=== PATIENT | female | born 1945 | race Caucasian/White ===

== ENCOUNTER 2016-07-26 14:02 | Emergency (ER) | payer OTHER ==
[2016-07-26 14:20] VITALS: BP 122/74; PULSE 89; TEMP 97.5; BMI 33.5
--- NOTE | 2016-07-26 16:09 | PDOC ---
History of Present Illness - General Chief Complaint: Pain Stated Complaint: RT LEG/ KNEE/ HIP PAIN Time Seen by Provider: 07/26/16 15:40 History Source: Patient Exam Limitations: No Limitations - History of Present Illness Initial Comments: 07/26/16 16:12 07/26/16 16:14 Chief complaint: Right lower back pain with radiation down right leg and pain in right knee worsening has had for months History of present illness: Patient is a 70 year old female with history of non- insulin-dependent diabetes hypertension, fibromyalgia, arthritis, hyperlipidemia , and chronic right neck pain with radiculopathy down right leg. Patient reports having worsening right knee pain with slight swelling of right knee over the last few months. Patient reports that right knee gives out when ambulating at times. Patient reports taking her Percocet without any relief of pain and ibuprofen at 6 AM today. Patient goes to pain management for her right lower back pain with radiculopathy. She reports that pain in her right leg today is a 9 out of 10 primarily in her right knee. Patient denies any numbness of her right leg, incontinency, or saddle anesthesia. Pt denies Injury to her right knee. Timing/Duration: getting worse Severity: severe (right knee ) Associated Symptoms: reports: denies symptoms Past History - Past Medical History Allergies/Adverse Reactions: Allergies Allergy/AdvReac Type Severity Reaction Status Date / Time cyclobenzaprine AdvReac Mild dizzy Verified 07/26/16 14:19 duloxetine HCl AdvReac Nausea Verified 07/26/16 14:19 [From Cymbalta] gabapentin AdvReac Nausea Verified 07/26/16 14:19 Home Medications: Ambulatory Orders Naproxen [Naprosyn -] 500 mg PO BID PRN #14 tablet MDD 2 07/26/16 Anemia: No Asthma: No Cancer: No Cardiac Disorders: No CVA: No COPD: No CHF: No Dementia: No Diabetes: Yes (NIDDM) GI Disorders: Yes (HX.COLON POLYP, Diverticulitis, and H. pylori) Disorders: No HTN: Yes Hypercholesterolemia: Yes Liver Disease: No Seizures: No Thyroid Disease: No - Surgical History Abdominal Surgery: No Appendectomy: No Cardiac Surgery: No Cholecystectomy: No Lung Surgery: No Neurologic Surgery: No Orthopedic Surgery: Yes (LEFT SHOULDER) - Psycho/Social/Smoking Cessation Hx Anxiety: No Suicidal Ideation: No Smoking Status: No Smoking History: Never smoked Number of Cigarettes Smoked Daily: 0 Hx Alcohol Use: No Drug/Substance Use Hx: No Substance Use Type: None Hx Substance Use Treatment: No Review of Systems - Review of Systems Able to Perform ROS?: Yes Constitutional: No: Symptoms Reported HEENTM: No: Symptoms Reported Respiratory: No: Symptoms reported Cardiac (ROS): No: Symptoms Reported ABD/GI: No: Symptoms Reported : No: Symptoms Reported Musculoskeletal: Yes: Back Pain (right sided radiates down rt. leg to foot ), Joint Pain (rt. knee ), Joint Swelling (rt. knee) Integumentary: No: Symptoms Reported Neurological: No: Symptoms reported *Physical Exam - Vital Signs Last Vital Signs Temp Pulse Resp BP Pulse Ox 97.5 F L 89 20 122/74 99 07/26/16 14:15 07/26/16 14:15 07/26/16 14:15 07/26/16 14:15 07/26/16 14:15 - Physical Exam General Appearance: Yes: Appropriately Dressed Respiratory/Chest: positive: Lungs Clear, Normal Breath Sounds. negative: Chest Tender, Respiratory Distress Cardiovascular: positive: Regular Rhythm, Regular Rate, S1, S2 Vascular Pulses: Dorsalis-Pedis (R): 4+ Musculoskeletal: positive: Normal Inspection, Decreased Range of Motion (from waist ). negative: CVA Tenderness, CVA Tenderness (R), CVA Tenderness (L), Vertebral Tenderness Extremity: positive: Normal Capillary Refill, Tender (rt. knee anterior/ posterior ), Swelling (suprapatella rt. knee ), Other (negative anterior/ posterior drawer rt. ). negative: Normal Inspection, Normal Range of Motion ( rt. knee ) Integumentary: positive: Normal Color Neurologic: positive: Alert, Normal Response, Respond to painful stimul (b/l legs ), Responsive, Other (negative SLR rt. ). negative: Motor Strength 5/5 ( motor/strength rt. leg decreased 3/3) Procedures - Consent Consent obtained: From Patient - Splinting Splint Location: Right: Knee Pre-Proc Neuro Vasc Exam: normal Pre-Made Type: knee immobilizer Medical Decision Making - Medical Decision Making 07/26/16 16:19 Patient is a 70 year old female with history of fls-stzfjeo-lcmcqysbi diabetes hypertension, fibromyalgia, arthritis, hyperlipidemia, and chronic right neck pain with radiculopathy down right leg. Patient reports having worsening right knee pain with slight swelling of right knee over the last few months. Patient reports that right knee gives out when ambulating at times. Patient reports taking her Percocet without any relief of pain and ibuprofen at 6 AM today. Patient goes to pain management for her right lower back pain with radiculopathy. She reports that pain in her right leg today is a 9 out of 10 primarily in her right knee. Patient denies any numbness of her right leg, incontinency, or saddle anesthesia. Pt denies Injury to her right knee. right sided lower back pain with radiculopathy right knee pain worsening over last few months with slight edema noted PLAN: toradol 60 mg IM now xray rt. knee now DJD noted ortho referral naprosyn 500 mg bid prn pain # 14 tabs 07/26/16 17:07 07/26/16 18:20 07/26/16 18:21 *DC/Admit/Observation/Transfer Diagnosis at time of Disposition: Lumbar radiculopathy, chronic Knee pain Qualifiers: Laterality: right Chronicity: chronic Qualified Code(s): M25.561 - Pain in right knee - Discharge Dispostion Disposition: HOME Condition at time of disposition: Stable - Prescriptions Prescriptions: Naproxen [Naprosyn -] 500 mg PO BID PRN #14 tablet MDD 2 PRN Reason: Pain - Referrals Referrals: Julita Bello NP [Primary Care Provider] - Milton Warner MD [Staff Physician] - - Patient Instructions Additional Instructions: Wear knee mmbolizier during the day and use crutches for ambulation FOLLOW UP WITH ORTHOPEDIST SOON POSSIBLE RETURN TO EMERGENCY ROOM IF SYMPTOMS WORSEN PATIENT VOICED UNDERSTANDING OF DISCHARGE INSTRUCTIONS AND ALL QUESTIONS WERE ANSWERED
[2016-07-26] MEDS ORDERED: KETOROLAC TROMETHAMINE 60 MG/2 ML VIAL IM ONE (16:10)
[2016-07-26] MEDS ORDERED: KETOROLAC TROMETHAMINE 60 MG/2 ML VIAL ONE (16:12)
== END 2016-07-26 17:15 | disposition home or self-care (01) ==
LOC: JERFT 14:02
PROC: 3E0233Z Introduction of Anti-inflammatory into Muscle, Percutaneous Approach (ICD-10-PCS; principal; 2016-07-26)
DX: M25.561 Pain in right knee (principal); E11.9 Type 2 diabetes mellitus without complications; I10 Essential (primary) hypertension; E78.00 Pure hypercholesterolemia, unspecified
CPT/HCPCS: 73562-TC-RT; 96372; 99282-25

== ENCOUNTER 2016-07-27 14:07 | Emergency (ER) | payer OTHER ==
[2016-07-27 14:16] VITALS: BP 158/84; PULSE 92; TEMP 98; BMI 33.5
--- NOTE | 2016-07-27 16:20 | PDOC ---
History of Present Illness - General History Source: Patient Exam Limitations: No Limitations - History of Present Illness Initial Comments: 07/27/16 16:49 The patient is a 70 year old female, with significant past medical history of hemorrhoids, diverticulosis, NIDDM, HTN, fibromyalgia, arthritis, HLD, chronic right neck pain, who presents today complaining of 2 days of rectal bleeding and abdominal pain. The patient states that her past 2 bowel movements were black stool with blood in the toilet bowl. She also reports epigastric pain and LUQ pain that is exacerbated when eating. She states that [address] Becerra told her that she had hemorrhoids. Her last colonoscopy was 3 years ago and normal. Denies fever, chills, nausea, vomiting. Denies chest pain, SOB. Allergies: cyclobenzaprine, duloxetine HCL, gabapentin PCP- Dr. Grijalva Catheterization Laboratory Technician: Dr. Becerra <Vijaya Gaitan - Last Filed: 07/27/16 16:49> <Jelani Sawyer - Last Filed: 07/27/16 18:36> - General Chief Complaint: Rectal Bleed Stated Complaint: BLOOD IN STOOL Time Seen by Provider: 07/27/16 16:18 Past History <Vijaya Gaitan - Last Filed: 07/27/16 16:49> - Past Medical History Anemia: No Asthma: No Cancer: No Cardiac Disorders: No CVA: No COPD: No CHF: No Dementia: No Diabetes: Yes (NIDDM) GI Disorders: Yes (HX.COLON POLYP, Diverticulitis, and H. pylori) Disorders: No HTN: Yes Hypercholesterolemia: Yes Liver Disease: No Seizures: No Thyroid Disease: No - Surgical History Abdominal Surgery: No Appendectomy: No Cardiac Surgery: No Cholecystectomy: No Lung Surgery: No Neurologic Surgery: No Orthopedic Surgery: Yes (LEFT SHOULDER) - Psycho/Social/Smoking Cessation Hx Anxiety: No Suicidal Ideation: No Smoking Status: No Smoking History: Never smoked Number of Cigarettes Smoked Daily: 0 Information on smoking cessation initiated: No Hx Alcohol Use: No Drug/Substance Use Hx: No Substance Use Type: None Hx Substance Use Treatment: No <Jelani Sawyer - Last Filed: 07/27/16 18:36> - Past Medical History Allergies/Adverse Reactions: Allergies Allergy/AdvReac Type Severity Reaction Status Date / Time cyclobenzaprine AdvReac Mild dizzy Verified 07/27/16 14:16 duloxetine HCl AdvReac Nausea Verified 07/27/16 14:16 [From Cymbalta] gabapentin AdvReac Nausea Verified 07/27/16 14:16 Abd/GI Specific PMHX - Complaint Specific PMHX Diverticulitis: Yes <Jelani Sawyer - Last Filed: 07/27/16 18:36> Review of Systems - Review of Systems Able to Perform ROS?: Yes Comments:: 07/27/16 16:50 CONSTITUTIONAL: No fever, no chills, no fatigue EYES: No visual changes ENT: No ear pain, no sore throat CARDIOVASCULAR: No chest pain, no palpitations RESPIRATORY: No cough, no SOB GI: +epigastric pain, black stool, blood in stool. No abdominal pain, no nausea , no vomiting, no constipation, no diarrhea GENITOURINARY: No dysuria, no frequency, no hematuria MUSKULOSKELETAL: No backpain, no joint pain, no myalgias SKIN: No rash NEURO: No headache <Vijaya Gaitan - Last Filed: 07/27/16 16:49> *Physical Exam - Vital Signs Last Vital Signs Temp Pulse Resp BP Pulse Ox 98 F 92 H 18 158/84 99 07/27/16 14:12 07/27/16 14:12 07/27/16 14:12 07/27/16 14:12 07/27/16 14:12 - Physical Exam Comments: 07/27/16 16:50 CONSTITUTIONAL: Well-appearing; well-nourished; in no apparent distress HEAD: Normocephalic; atraumatic EYES: PERRL; EOM intact. Conjunctiva are pink. ENMT: External appears normal; normal oropharynx NECK: Supple; non-tender; no cervical lymphadenopathy CARD: Normal S1, S2; no murmurs, rubs, or gallops RESP: Normal chest excursion with respiration; breath sounds clear and equal bilaterally; no wheezes, rhonchi, or rales ABD: +Mild epigastric and LUQ tenderness no guarding, no rebound. Soft, non- distended; no palpable organomegaly, no palpable hernias RECTAL: No thrombotic external hemorrhoid. No masses in rectal vault. Stool is brown. EXT: Normal ROM in all four extremities; non-tender to palpation; distal pulses intact SKIN: Warm, dry, no rash NEURO: No focal neurological deficiencies. <Vijaya Gaitan - Last Filed: 07/27/16 16:49> - Vital Signs Last Vital Signs Temp Pulse Resp BP Pulse Ox 98 F 92 H 18 158/84 99 07/27/16 14:12 07/27/16 14:12 07/27/16 14:12 07/27/16 14:12 07/27/16 14:12 <Jelani Sawyer - Last Filed: 07/27/16 18:36> ED Treatment Course - LABORATORY CBC & Chemistry Diagram: 07/27/16 17:00 07/27/16 17:00 <Jelani Sawyer - Last Filed: 07/27/16 18:36> Medical Decision Making - Medical Decision Making 07/27/16 18:11 Patient is a 70-year-old female with multiple comorbidities who presents with an episode of painless rectal bleeding and episode of dark stools on the day of arrival. In the ER, patient is awake and alert, hemodynamically stable. Serial abdominal exams reveal mild left upper quadrant and epigastric tenderness only without guarding or rebound. Rectal exam reveals nonthrombosed external hemorrhoids, brown stool in the rectal vault and no palpable masses. Patient's CBC is noted for hematocrit of 37 which appears unchanged. Stool for a cold blood in the ED is noted to be negative. I suspect hemorrhoidal bleeding at this time. Melena is unlikely. Will discuss with Dr. brenner of GI. Will reassess. 07/27/16 18:34 Patient is resting comfortably, tolerates by mouth, repeat abdominal exam shows no focal tenderness. I discussed the case with Dr. brenner of gi. He agrees with outpatient follow-up with by mouth Zantac twice a day. Patient has also been instructed not to take naproxen prescribed earlier for osteoarthritis. Patient expressed understanding. <Jelani Sawyer - Last Filed: 07/27/16 18:36> *DC/Admit/Observation/Transfer - Attestations Scribe Attestion: 07/27/16 16:51 Documentation prepared by AMADEO Marmolejo, acting as certified court/medical interpreter for Jelani Sawyer MD. <Vijaya Gaitan - Last Filed: 07/27/16 16:49> - Attestations Physician Attestion: 07/27/16 18:11 The documentation was prepared by the scribe under my direct supervision. I have reviewed the documentation which correctly represents the findings, medical decision-making and critical action taken by me. <Jelani Sawyer - Last Filed: 07/27/16 18:36> Diagnosis at time of Disposition: Rectal bleed - Discharge Dispostion Disposition: HOME Condition at time of disposition: Stable - Referrals Referrals: Alley Grijalva MD [Primary Care Provider] - Jose De Jesus Becerra MD [Staff Physician] - - Patient Instructions Printed Discharge Instructions: DI for Rectal Bleeding Additional Instructions: Take Zantac-150 mg by mouth twice daily. Do not take naproxen, ibuprofen or any other nonsteroidal anti-inflammatory medications. Follow-up with your GI doctor. Return immediately for recurrent bleeding.
[2016-07-27 17:24] LABS: BASOPHIL 0.4 % (0-2.0); EOSINOPHIL 2.3 % (0-4.5); MCH 28.4 pg (25.7-33.7); MCHC 32.9 g/dl (32.0-36.0); MEAN CELL VOLUME 86.4 fl (80-96); MEAN PLT VOLUME 8.2 fl (7.5-11.1); NEUTROPHILS 56.7 % (42.8-82.8); PLATELET COUNT 234 K/MM3 (134-434); RDW 13.8 % (11.6-15.6); WHITE BLOOD COUNT 7.6 K/mm3 (4.0-10.0)
[2016-07-27 17:58] LABS: ALBUMIN 3.8 g/dl (3.4-5.0); ANION GAP 8 (8-16); BILIRUBIN,TOTAL 0.5 mg/dL (0.2-1.0); CALCIUM 8.7 mg/dL (8.5-10.1); CO2 28 mmol/L (21-32); CREATININE 0.9 mg/dL (0.55-1.02); GLUCOSE,RANDOM 169 mg/dL (74-106); SGOT/AST 16 U/L (15-37); SGPT/ALT 23 U/L (12-78); TOT PROT 7.2 g/dl (6.4-8.2)
[2016-07-27 17:59] LABS: ALK PHOS 79 U/L (45-117)
[2016-07-27 18:04] LABS: INR 1.11 (0.82-1.09); PROTHROMBIN TIME (PATIENT) 12.2 SEC (9.98-11.88)
== END 2016-07-27 18:40 | disposition home or self-care (01) ==
LOC: JER 14:07
DX: K64.4 Residual hemorrhoidal skin tags (principal); I10 Essential (primary) hypertension; E11.9 Type 2 diabetes mellitus without complications; Z79.84 Long term (current) use of oral hypoglycemic drugs; E78.00 Pure hypercholesterolemia, unspecified; Z87.19 Personal history of other diseases of the digestive system
CPT/HCPCS: 36415; 80053; 82272; 85025; 85610; 86850; 86900; 86901; 99282-25

== ENCOUNTER 2016-08-23 14:17 | Emergency (ER) | payer OTHER ==
[2016-08-23] MEDS ORDERED: MECLIZINE HCL 25 MG TABLET (FP) PO ONE (14:58)
[2016-08-23] MEDS ORDERED: MECLIZINE HCL 25 MG TABLET (FP) ONE (15:08)
--- NOTE | 2016-08-23 15:11 | PDOC ---
History of Present Illness - General Chief Complaint: Lightheaded Stated Complaint: DIZZINESS Time Seen by Provider: 08/23/16 14:43 History Source: Patient Exam Limitations: No Limitations - History of Present Illness Initial Comments: 08/23/16 14:58 Associated Symptoms: reports: nausea/vomiting, other (dizziness/ spinnning when lying flat, resolves with sitting up ). denies: fever/chills, loss of consciousness, muscle spasms, numbness in legs/feet, paresthesia, ringing in ears Past History - Travel Traveled outside of the country in the last 30 days: No Close contact w/someone who was outside of country & ill: No - Past Medical History Allergies/Adverse Reactions: Allergies Allergy/AdvReac Type Severity Reaction Status Date / Time cyclobenzaprine AdvReac Mild dizzy Verified 08/23/16 14:47 duloxetine HCl AdvReac Nausea Verified 08/23/16 14:47 [From Cymbalta] gabapentin AdvReac Nausea Verified 08/23/16 14:47 Home Medications: Ambulatory Orders Atorvastatin Calcium [Lipitor] 20 mg PO HS 08/18/16 Glipizide [Glipizide ER] 2.5 mg PO DAILY 08/18/16 Oxycodone HCl/Acetaminophen [Percocet 10-325 mg Tablet] 1 each PO TID #90 tablet MDD 3 08/18/16 Zolpidem Tartrate [Ambien] 10 mg PO DAILY 08/18/16 Cholecalciferol (Vitamin D3) [Vitamin D3] 5,000 unit PO DAILY 08/23/16 Diclofenac Sodium 75 mg PO BID 08/23/16 Linagliptin [Tradjenta] 5 mg PO DAILY 08/23/16 Meclizine HCl [Antivert -] 25 mg PO TID #21 tablet 08/23/16 Naproxen [Naprosyn -] 500 mg PO BID 08/23/16 Telmisartan 80 mg PO DAILY 08/23/16 Anemia: No Asthma: No Cancer: No Cardiac Disorders: No CVA: No COPD: No CHF: No Dementia: No Diabetes: Yes (NIDDM) GI Disorders: Yes (HX.COLON POLYP, Diverticulitis, and H. pylori) Disorders: No HTN: Yes Hypercholesterolemia: Yes Liver Disease: No Seizures: No Thyroid Disease: No - Surgical History Abdominal Surgery: No Appendectomy: No Cardiac Surgery: No Cholecystectomy: No Lung Surgery: No Neurologic Surgery: No Orthopedic Surgery: Yes (LEFT SHOULDER) - Psycho/Social/Smoking Cessation Hx Anxiety: No Suicidal Ideation: No Smoking Status: No Smoking History: Never smoked Number of Cigarettes Smoked Daily: 0 Hx Alcohol Use: No Drug/Substance Use Hx: No Substance Use Type: None Hx Substance Use Treatment: No Neuro Specific PMHX - Complaint Specific PMHX Migraine: No Neuropathy: No TIA: No Comments:: 08/23/16 15:17 Recurrence of "spinning" when lying flat with associated nausea. No nystagmus, unable to check [place] due to patient's discomfort. Review of Systems - Review of Systems Able to Perform ROS?: Yes Is the patient limited Kiswahili proficient: Yes Constitutional: Yes: See HPI, Malaise HEENTM: Yes: See HPI, Nose Congestion. No: Symptoms Reported, Eye Pain, Blurred Vision, Recent change in vision, Double Vision Respiratory: Yes: See HPI. No: Symptoms reported, Cough Cardiac (ROS): No: Symptoms Reported : No: Symptoms Reported Musculoskeletal: Yes: See HPI. No: Symptoms Reported Neurological: Yes: Symptoms reported, Headache, Dizziness (spinning ) Endocrine: No: Symptoms Reported All Other Systems: Reviewed and Negative *Physical Exam - Vital Signs Last Vital Signs Temp Pulse Resp BP Pulse Ox 97.4 F L 81 20 149/77 98 08/23/16 14:47 08/23/16 14:47 08/23/16 14:47 08/23/16 14:47 08/23/16 14:47 - Physical Exam General Appearance: Yes: Appropriately Dressed, Apparent Distress HEENT: positive: NAI, Normal ENT Inspection, Normal Voice, TMs Normal, Pharynx Normal Neck: positive: Supple. 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 negative: Abnormal Cranial NS, Facial Droop, Numbness, Sensory Deficit, Finger to Nose NIH Stroke Scale - Initial Evaluation Level of consciousness: Alert Ask patient the month and their age: Answers both correctly Ask patient to open & close eyes; make fist and let go: Obeys both correctly Best gaze (horizontal eye movement): Normal Visual field testing: No visual field loss Facial paresis (Show teeth/raise eyebrows/close eyes tight): Normal symmetrical movement Motor Function: Left Arm: Normal Motor Function: Right Arm: Normal (extends arm 90 (or 45) degrees for 10 seconds without drift Motor Function: Left Leg: Normal (extends leg 30 degrees for 5 seconds without drift) Motor Function: Right Leg: Normal (extends leg 30 degrees for 5 seconds without drift) Limb Ataxia: No ataxia Sensory(Use pinprick test arms,legs,trunk,face/side to side): Normal Best language (Describe picture, name items, read sentences): No Aphasia Dysarthria (read several words): Normal articulation Extinction and Inattention: No abnormality - Total Score NIH Stroke Scale Score: 0 Critical Care Time/MDM Note - Medical Decision Making Note: 08/23/16 15:18 Vertigo, will obtain CAT scan, basic labs were and provide meclizine for test of cure 08/23/16 16:20 08/23/16 17:57 Laboratory work within normal limits, we'll discharge with meclizine, and follow -up with neurology. Patient has appointment on Discharge Disposition - Diagnosis Vertigo - Discharge Dispostion Disposition: HOME Condition at time of disposition: Stable Last Admission D/C Date: 11/22/12 Admit: No - Prescriptions Prescriptions: Meclizine HCl [Antivert -] 25 mg PO TID #21 tablet - Referrals Referrals: Alfonso Black MD [Primary Care Provider] - [facility] [Provider Group] - Patient Instructions Printed Discharge Instructions: DI for Vertigo Additional Instructions: Rest, drink lots of fluids: Teas, water, soups Continue [id number] medications for symptomatic relief Tylenol or Motrin for fever and pain Continue meclizine 25 mg tablet every 8 hours as needed for continued dizziness/ vertigo Consider evaluation by neurologist for continued vertigo Followup with private physician in one to 2 days as needed Return to emergency department for worsened symptoms, fevers, dehydration - Post Discharge Activity Work/School Note: Back to Work
[2016-08-23 15:19] VITALS: BP 149/77; PULSE 81; TEMP 97.4; BMI 32.3
[2016-08-23 16:09] LABS: BASOPHIL 0.7 % (0-2.0); EOSINOPHIL 1.2 % (0-4.5); MCH 28.3 pg (25.7-33.7); MCHC 32.8 g/dl (32.0-36.0); MEAN CELL VOLUME 86.4 fl (80-96); NEUTROPHILS 64.4 % (42.8-82.8); PLATELET COUNT 272 K/MM3 (134-434); RDW 14.1 % (11.6-15.6); WHITE BLOOD COUNT 8.5 K/mm3 (4.0-10.0)
[2016-08-23 17:40] LABS: ALBUMIN 3.7 g/dl (3.4-5.0); ANION GAP 8 (8-16); BILIRUBIN,TOTAL 0.3 mg/dL (0.2-1.0); CALCIUM 8.9 mg/dL (8.5-10.1); CO2 29 mmol/L (21-32); CREATININE 0.9 mg/dL (0.55-1.02); GLUCOSE,RANDOM 118 mg/dL (74-106); SGOT/AST 13 U/L (15-37); SGPT/ALT 18 U/L (12-78); TOT PROT 7.3 g/dl (6.4-8.2)
[2016-08-23 17:41] LABS: ALK PHOS 82 U/L (45-117)
--- NOTE | 2016-08-23 18:32 | PDOC ---
*Physical Exam - Vital Signs Last Vital Signs Temp Pulse Resp BP Pulse Ox 97.4 F L 81 20 149/77 98 08/23/16 14:47 08/23/16 14:47 08/23/16 14:47 08/23/16 14:47 08/23/16 14:47 ED Treatment Course - LABORATORY CBC & Chemistry Diagram: 08/23/16 16:00 08/23/16 17:00 - ADDITIONAL ORDERS Additional order review: Laboratory Results 08/23/16 08/23/16 17:00 16:00 Sodium 139 Cancelled Potassium 4.4 Cancelled Chloride 102 Cancelled Carbon Dioxide 29 Cancelled Anion Gap 8 Cancelled BUN 18 Cancelled Creatinine 0.9 Cancelled Creat Clearance w eGFR > 60 Cancelled Random Glucose 118 H D Cancelled Calcium 8.9 Cancelled Total Bilirubin 0.3 D Cancelled AST 13 L Cancelled ALT 18 D Cancelled Alkaline Phosphatase 82 Cancelled Total Protein 7.3 Cancelled Albumin 3.7 Cancelled 08/23/16 16:00 RBC 4.26 MCV 86.4 MCHC 32.8 RDW 14.1 MPV 8.0 Neutrophils % 64.4 Lymphocytes % 27.3 D Monocytes % 6.4 Eosinophils % 1.2 Basophils % 0.7 - Medications Given in the ED: ED Medications Discontinued Medications Generic Name Dose Route Start Last Admin Trade Name Kavitha PRN Reason Stop Dose Admin Meclizine HCl 25 mg 08/23/16 14:58 08/23/16 15:42 Antivert - PO 08/23/16 14:59 25 mg ONCE ONE Administration Medical Decision Making - Medical Decision Making 08/23/16 18:31 Pt seen by Midlevel Provider under my direct supervision Ancillary studies reviewed I agree with plan as outlined by Midlevel Provider *DC/Admit/Observation/Transfer Diagnosis at time of Disposition: Vertigo - Discharge Dispostion Disposition: HOME Condition at time of disposition: Stable - Prescriptions Prescriptions: Meclizine HCl [Antivert -] 25 mg PO TID #21 tablet - Referrals Referrals: [facility] [Provider Group] Alfonso Black MD [Primary Care Provider] - - Patient Instructions Printed Discharge Instructions: DI for Vertigo Additional Instructions: Rest, drink lots of fluids: Teas, water, soups Continue [id number] medications for symptomatic relief Tylenol or Motrin for fever and pain Continue meclizine 25 mg tablet every 8 hours as needed for continued dizziness/ vertigo Consider evaluation by neurologist for continued vertigo Followup with private physician in one to 2 days as needed Return to emergency department for worsened symptoms, fevers, dehydration - Post Discharge Activity Work/School Note: Back to Work
== END 2016-08-23 17:55 | disposition home or self-care (01) ==
LOC: JER 14:17
DX: R42 Dizziness and giddiness (principal); I10 Essential (primary) hypertension; E78.00 Pure hypercholesterolemia, unspecified; E11.9 Type 2 diabetes mellitus without complications
CPT/HCPCS: 36415; 70450-TC; 80053; 85025; 99284-25

== ENCOUNTER 2017-06-12 12:33 | Emergency (ER) | payer OTHER ==
[2017-06-12 12:44] VITALS: BP 135/80; PULSE 84; TEMP 98.8; BMI 33.5
[2017-06-12] MEDS ORDERED: traMADol HCL 50 MG TABLET PO ONE (13:43)
--- NOTE | 2017-06-12 13:50 | PDOC ---
History of Present Illness - General Chief Complaint: Injury Stated Complaint: INJURY Time Seen by Provider: 06/12/17 13:16 - History of Present Illness Initial Comments: 06/12/17 13:44 71yo woman presents s/p witnessed mechanical fall last night, now with L wrist pain. Around 7pm last night she fell while walking on the sidewalk. She denies any pre-syncopal symptoms, including lightheadedness, dizziness or seizure like activity before, during, and after the episode. She fell on outstretched hands. Denies hitting her head. No LOC. Her was present, and corroborates history. She iced her wrist, but still has significant 10/10 pain with movement of her L hand/wrist. Past History - Past Medical History Allergies/Adverse Reactions: Allergies Allergy/AdvReac Type Severity Reaction Status Date / Time cyclobenzaprine AdvReac Mild dizzy Verified 06/12/17 12:41 duloxetine HCl AdvReac Nausea Verified 06/12/17 12:41 [From Cymbalta] gabapentin AdvReac Nausea Verified 06/12/17 12:41 Home Medications: Ambulatory Orders Atorvastatin Calcium [Lipitor] 20 mg PO HS 08/18/16 Glipizide [Glipizide ER] 2.5 mg PO DAILY 08/18/16 Zolpidem Tartrate [Ambien] 10 mg PO DAILY 08/18/16 Cholecalciferol (Vitamin D3) [Vitamin D3] 5,000 unit PO DAILY 08/23/16 Linagliptin [Tradjenta] 5 mg PO DAILY 08/23/16 Naproxen [Naprosyn -] 500 mg PO BID 08/23/16 Telmisartan 80 mg PO DAILY 08/23/16 Diclofenac Sodium [Voltaren] 100 gm TP TID PRN 09/14/16 Oxycodone HCl/Acetaminophen [Percocet 10-325 mg Tablet] 1 each PO TID #90 tablet MDD 3 06/05/17 Oxycodone HCl/Acetaminophen [Percocet 5-325 mg Tablet] 1 tab PO BID #6 tablet MDD 2 06/12/17 Oxycodone HCl/Acetaminophen [Percocet 5-325 mg Tablet] 1 tab PO Q12H PRN #10 tablet MDD 2 06/12/17 Anemia: No Asthma: No Cancer: No Cardiac Disorders: No CVA: No COPD: No CHF: No DVT: No Dementia: No Diabetes: Yes (NIDDM) GI Disorders: Yes (HX.COLON POLYP, Diverticulitis, and H. pylori) Disorders: No HTN: Yes Hypercholesterolemia: Yes Liver Disease: No Seizures: No Thyroid Disease: No - Surgical History Abdominal Surgery: No Appendectomy: No Cardiac Surgery: No Cholecystectomy: No Lung Surgery: No Neurologic Surgery: No Orthopedic Surgery: Yes (LEFT SHOULDER) - Suicide/Smoking/Psychosocial Hx Smoking Status: No Smoking History: Never smoked Have you smoked in the past 12 months: No Number of Cigarettes Smoked Daily: 0 Information on smoking cessation initiated: No Hx Alcohol Use: No Drug/Substance Use Hx: No Substance Use Type: None Hx Substance Use Treatment: No Review of Systems - Review of Systems Musculoskeletal: Yes: Symptoms Reported Integumentary: No: Bruising Neurological: No: Headache, Numbness, Unsteady Gait, Dizziness All Other Systems: Reviewed and Negative *Physical Exam - Vital Signs Last Vital Signs Temp Pulse Resp BP Pulse Ox 98.8 F 84 18 135/80 100 06/12/17 12:42 06/12/17 12:42 06/12/17 12:42 06/12/17 12:42 06/12/17 12:42 - Physical Exam General Appearance: Yes: Nourished, Appropriately Dressed Neck: positive: Trachea midline, Supple, Tender lateral (L>R) Respiratory/Chest: positive: Lungs Clear, Normal Breath Sounds Cardiovascular: positive: Regular Rhythm, Regular Rate, S1, S2 Musculoskeletal: positive: Other (L radial soft tissue swelling, (+) L distal radius tenderness, limited L wrist flexion/extension 2/2 pain) Integumentary: negative: Swelling, Bruising Neurologic: positive: tear down worker II-XII NML intact, Fully Oriented, Alert Medical Decision Making - Medical Decision Making 06/12/17 13:55 71yo woman s/p mechanical fall with L scaphoid tenderness and radial wrist soft tissue swelling. Will order L arm/wrist with scaphoid views to r/o fracture. Will hold off on head imaging as patient denies hitting her head, CN exam and gait is intact. -Percocet for pain 06/12/17 13:59 Radiograph of L hand read as no radiographic e/o fracture, however can consider MRI if ongoing clinical concern. Due to point focal tenderness and possible correlated lucency on radiograph, a splint was placed. Pt was instructed to follow up with Orthopedics in the next 2-3 days, which she agreed with. *DC/Admit/Observation/Transfer Diagnosis at time of Disposition: Fracture of radial head, left, closed - Discharge Dispostion Disposition: HOME Condition at time of disposition: Stable Admit: No - Prescriptions Prescriptions: Oxycodone HCl/Acetaminophen [Percocet 5-325 mg Tablet] 1 tab PO Q12H PRN #10 tablet MDD 2 PRN Reason: Pain Oxycodone HCl/Acetaminophen [Percocet 5-325 mg Tablet] 1 tab PO BID #6 tablet MDD 2 - Referrals Referrals: Ngozi Hugo MD [Primary Care Provider] - Mahad Stock MD [Staff Physician] - - Patient Instructions Printed Discharge Instructions: DI for Forearm Fracture Additional Instructions: You have a suspected fracture in your left radial bone. Keep the splint on, place ice on your wrist every 20 minutes (that is 20 minutes with ice, 20 minutes off ice, repeat). Make an appointment with Dr. Stock, Orthopedist, in 2-3days. You can take 1 Percocet every 12 hours as needed for pain. Please also take a stool softner with Percocet to avoid constipation. You can also take Motrin for pain as needed. Please return to the Emergency Department if you have worsening, new or concerning symptoms. - Post Discharge Activity
[2017-06-12] MEDS ORDERED: traMADol HCL 50 MG TABLET ONE (13:56)
--- NOTE | 2017-06-12 14:00 | PDOC ---
Attending Attestation - HPI HPI: 06/12/17 14:02 The patient is a 71 year old female, with a significant past medical history of , who presents to the emergency department s/p mechanical fall last night with complaint of left wrist pain and swelling today. She states she was leaving her familys house, reports it was dark, and reportedly fell, however, denies tripping or reason for falling. She recalls falling with her upper extremities outstretched to stop her fall. She denies head trauma. She reports She denies chest pain, shortness of breath, headache and dizziness. She denies fever, chills, nausea, vomit, diarrhea and constipation. She denies dysuria, frequency, urgency and hematuria. - Physicial Exam PE: 06/12/17 14:02 Vitals: Triage vital signs reviewed General Appearance: No acute distress, well nourished, well developed Head: Atraumatic Neck: Supple; No nuchal rigidity Chest Wall: Nontender Cardiac: Regular rate and rhythm, no murmurs, no rubs, no gallops Lungs: Clear to auscultation bilateral, good air movement bilaterally Abdomen: Soft, nondistended, normal bowel sounds, nontender to palpation Rectal: Exam deferred Extremities: + Left Wrist ttp over distal radius, neurovascularly intact distally. Full range of motion to all extremities, no cyanosis, clubbing, or edema Skin: Warm and dry, no rashes or lesions, no rash, no petechiae Neuro: AOX3; Cranial Nerves 2-12 grossly intact, Strength intact to all extremities, Sensation intact to all extremities, gait normal Psych: Normal mood, normal affect - Medical Decision Making 06/12/17 14:03 Documentation prepared by Francie Christie, acting as medical education coordinator for Sagar Bradley MD <Francie Christie - Last Filed: 06/12/17 14:24> - Resident Resident Name: Michelle Avila - ED Attending Attestation I have performed the following: I have examined & evaluated the patient, The case was reviewed & discussed with the resident, I agree w/resident's findings & plan, Exceptions are as noted - Medical Decision Making 06/12/17 14:21 Mechanical fall landed on left outstretched wrist no other injury sustained We'll x-ray pain meds and reassess 06/12/17 16:35 X-ray suspicious for nondisplaced distal radius fracture. Patient placed in sugar tong splint. Provided with orthopedic follow-up and pain medication Findings, the need for follow-up and strict return instructions discussed with patient. <Sagar Bradley - Last Filed: 06/12/17 16:36>
[2017-06-12] MEDS ORDERED: oxyCODONE HCL 5 MG TABLET ONE (14:01)
== END 2017-06-12 15:48 | disposition home or self-care (01) ==
LOC: JERFT 12:33 → JER 12:33
PROC: 2W3DX1Z Immobilization of Left Lower Arm using Splint (ICD-10-PCS; principal; 2017-06-12)
DX: S52.125A Nondisplaced fracture of head of left radius, initial encounter for closed fracture (principal); W18.39XA Other fall on same level, initial encounter; Y93.89 Activity, other specified; Y92.9 Unspecified place or not applicable
CPT/HCPCS: 29105; 73110-TC-LT; 73130-TC-LT; 99282-25

== ENCOUNTER 2017-08-03 12:39 | Emergency (ER) | payer OTHER ==
[2017-08-03 12:55] VITALS: BP 115/68; PULSE 105; TEMP 98.8; BMI 34.7
[2017-08-03] MEDS ORDERED: IBUPROFEN 800 MG/8 ML IJ IVPB ONE (15:43)
[2017-08-03] MEDS ORDERED: ACETAMINOPHEN 1000 MG/100 ML VIAL (NON FORMULARY) IVPB ONE (15:44)
--- NOTE | 2017-08-03 16:05 | PDOC ---
History of Present Illness - General Chief Complaint: Weakness Stated Complaint: HEADACHES, NAUSEA Time Seen by Provider: 08/03/17 15:27 Exam Limitations: No Limitations - History of Present Illness Initial Comments: 08/03/17 16:05 The patient is a 71 year old female, with significant past medical history of hemorrhoids, diverticulosis, NIDDM, HTN, fibromyalgia, arthritis, HLD, chronic right neck pain Past History - Past Medical History Allergies/Adverse Reactions: Allergies Allergy/AdvReac Type Severity Reaction Status Date / Time cyclobenzaprine AdvReac Mild dizzy Verified 08/03/17 12:53 duloxetine HCl AdvReac Nausea Verified 08/03/17 12:53 [From Cymbalta] gabapentin AdvReac Nausea Verified 08/03/17 12:53 Home Medications: Ambulatory Orders Atorvastatin Calcium [Lipitor] 20 mg PO HS 08/18/16 Glipizide [Glipizide ER] 2.5 mg PO DAILY 08/18/16 Zolpidem Tartrate [Ambien] 10 mg PO DAILY 08/18/16 Cholecalciferol (Vitamin D3) [Vitamin D3] 5,000 unit PO DAILY 08/23/16 Linagliptin [Tradjenta] 5 mg PO DAILY 08/23/16 Naproxen [Naprosyn -] 500 mg PO BID 08/23/16 Telmisartan 80 mg PO DAILY 08/23/16 Diclofenac Sodium [Voltaren] 100 gm TP TID PRN 09/14/16 Docusate Sodium [Colace -] 100 mg PO TID #90 capsule 08/01/17 Oxycodone HCl/Acetaminophen [Percocet 10-325 mg Tablet] 1 each PO TID #90 tablet MDD 3 08/01/17 Oseltamivir Phosphate [Tamiflu -] 75 mg PO BID #10 capsule 08/03/17 Anemia: No Asthma: No Cancer: No Cardiac Disorders: No CVA: No COPD: No CHF: No DVT: No Dementia: No Diabetes: Yes (NIDDM) GI Disorders: Yes (HX.COLON POLYP, Diverticulitis, and H. pylori) Disorders: No HTN: Yes Hypercholesterolemia: Yes Liver Disease: No Seizures: No Thyroid Disease: No - Surgical History Abdominal Surgery: No Appendectomy: No Cardiac Surgery: No Cholecystectomy: No Lung Surgery: No Neurologic Surgery: No Orthopedic Surgery: Yes (LEFT SHOULDER) - Suicide/Smoking/Psychosocial Hx Smoking Status: No Smoking History: Never smoked Have you smoked in the past 12 months: No Number of Cigarettes Smoked Daily: 0 Hx Alcohol Use: No Drug/Substance Use Hx: No Substance Use Type: None Hx Substance Use Treatment: No *Physical Exam - Vital Signs Last Vital Signs Temp Pulse Resp BP Pulse Ox 98.8 F 105 H 16 115/68 99 08/03/17 12:53 08/03/17 12:53 08/03/17 12:53 08/03/17 12:53 08/03/17 12:53 ED Treatment Course - LABORATORY CBC & Chemistry Diagram: 08/03/17 16:00 08/03/17 16:00 *DC/Admit/Observation/Transfer Diagnosis at time of Disposition: Influenza A - Discharge Dispostion Disposition: HOME Admit: No - Prescriptions Prescriptions: Oseltamivir Phosphate [Tamiflu -] 75 mg PO BID #10 capsule - Referrals Referrals: Jordon Butler MD [Primary Care Provider] - - Patient Instructions Printed Discharge Instructions: How to Avoid a Cold or Flu, DI for Influenza - - Adult Additional Instructions: You have been tested positive for the flu! PPick up prescription for Tamiflu and use it as prescribed. Follow up with your primary care provider within the next 2-3 days. Come back to the ER for any new, worsening or concerning symptoms. - Post Discharge Activity
--- NOTE | 2017-08-03 16:10 | PDOC ---
Attending Attestation - Resident Resident Name: Memo Person - ED Attending Attestation I have performed the following: I have examined & evaluated the patient, The case was reviewed & discussed with the resident, I agree w/resident's findings & plan, Exceptions are as noted - Physicial Exam PE: 08/03/17 17:00 pt is awake and alert, well nourished, afebrile, in no distress nc, atr perrla, eomi, no photophobia mmm cta rrr sft, nt, nd no LEs edema, no petechiae - Medical Decision Making 08/03/17 16: 35 pt is a 71 y/o female with dm who presents with 4 days of flu-like sxs. in the ED , pt is axo3, non-toxic appearing, in no distress. VS are noted to be nl and stable. chest x-ray shows no evidence of i/e/ptx. cbc is wnl; will administer apap. will test for influenza. will reascess. 08/03/17 17:08 pt reascessed. pt is resting comfortably. pt is noted to be influenza a pos. will treat with tamiflu, will d/c.
[2017-08-03] MEDS ORDERED: ACETAMINOPHEN INJECTION 100 ML IVPB ONE (16:14)
[2017-08-03 16:25] LABS: BASO % 0.6 % (0-2.0); EOS % 0.2 % (0-4.5); HEMATOCRIT 36.2 % (32.4-45.2); HEMOGLOBIN 11.9 GM/dL (10.7-15.3); LYMPH % 22.5 % (8-40); MCH 28.5 pg (25.7-33.7); MCHC 32.9 g/dl (32.0-36.0); MEAN CELL VOLUME 86.5 fl (80-96); MEAN PLT VOLUME 8.3 fl (7.5-11.1); MONO % 13.9 % (3.8-10.2); NEUT % 62.8 % (42.8-82.8); PLATELET COUNT 176 K/MM3 (134-434); RBC 4.19 M/mm3 (3.60-5.2); RDW 13.7 % (11.6-15.6); WHITE BLOOD COUNT 4.7 K/mm3 (4.0-10.0)
[2017-08-03] MEDS ORDERED: OSELTAMIVIR PHOSPHATE 75 MG CAPSULE PO ONE (16:57)
[2017-08-03] MEDS ORDERED: OSELTAMIVIR PHOSPHATE 75 MG CAPSULE ONE (17:01)
[2017-08-03 17:10] LABS: ALBUMIN 3.5 g/dl (3.4-5.0); ANION GAP 10 (8-16); BILIRUBIN,TOTAL 0.3 mg/dL (0.2-1.0); BLOOD UREA NITROGEN 18 mg/dL (7-18); CALCIUM 8.7 mg/dL (8.5-10.1); CHLORIDE 98 mmol/L (98-107); CO2 27 mmol/L (21-32); CREATININE 0.9 mg/dL (0.55-1.02); GLUCOSE,RANDOM 94 mg/dL (74-106); SGOT/AST 23 U/L (15-37); SGPT/ALT 21 U/L (12-78); SODIUM 135 mmol/L (136-145); TOT PROT 7.3 g/dl (6.4-8.2)
[2017-08-03 17:11] LABS: ALK PHOS 67 U/L (45-117)
== END 2017-08-03 17:29 | disposition home or self-care (01) ==
LOC: JER 12:39
PROC: 3E033NZ Introduction of Analgesics, Hypnotics, Sedatives into Peripheral Vein, Percutaneous Approach (ICD-10-PCS; principal; 2017-08-03)
DX: J09.X2 Influenza due to identified novel influenza A virus with other respiratory manifestations (principal); I10 Essential (primary) hypertension; E11.9 Type 2 diabetes mellitus without complications; Z79.84 Long term (current) use of oral hypoglycemic drugs; M79.7 Fibromyalgia; M54.2 Cervicalgia; G89.29 Other chronic pain; Z87.19 Personal history of other diseases of the digestive system
CPT/HCPCS: 36415; 71046-TC; 80053; 85025; 87804; 96374; 99283-25

== ENCOUNTER 2017-10-28 14:19 | Emergency (ER) | payer OTHER ==
[2017-10-28 14:49] VITALS: BP 149/84; PULSE 89; TEMP 98.1; BMI 34.7
[2017-10-28] MEDS ORDERED: RABIES VACCINE (PCEC)/PF 2.5 UNIT/VIAL IM ONE (15:23)
[2017-10-28] MEDS ORDERED: RABIES IMMUNE GLOBULIN 300 UNITS/2 ML VIAL IM ONE (15:23)
[2017-10-28] MEDS ORDERED: DIPHTH,PERTUSS(ACELL),TET 0.5 ML DISP.SYRIN IM ONE (15:25)
[2017-10-28] MEDS ORDERED: RABIES IMMUNE GLOBULIN 300 UNITS/2 ML VIAL ONE (15:32)
--- NOTE | 2017-10-28 15:34 | PDOC ---
History of Present Illness - General Chief Complaint: Bite Stated Complaint: DOG BITE Time Seen by Provider: 10/28/17 14:58 History Source: Patient Exam Limitations: No Limitations - History of Present Illness Initial Comments: 10/28/17 15:30 CHIEF COMPLAINT: Dog bite to left wrist HISTORY OF PRESENT ILLNESS: Patient is a 72-year-old female with history of fibromyalgia, diabetes, high cholesterol, hypertension. Patient reports walking to the store, there was a large brown dog that walking to her and bit her on the left medial wrist. 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 Unknown vaccinations. Good range of motion to hand. Tetanus is not up-to-date. Severity: moderate Past History - Past Medical History Allergies/Adverse Reactions: Allergies Allergy/AdvReac Type Severity Reaction Status Date / Time cyclobenzaprine AdvReac Mild dizzy Verified 08/03/17 12:53 duloxetine HCl AdvReac Nausea Verified 08/03/17 12:53 [From Cymbalta] gabapentin AdvReac Nausea Verified 08/03/17 12:53 Home Medications: Ambulatory Orders Atorvastatin Calcium [Lipitor] 20 mg PO HS 08/18/16 Glipizide [Glipizide ER] 2.5 mg PO DAILY 08/18/16 Zolpidem Tartrate [Ambien] 10 mg PO DAILY 08/18/16 Cholecalciferol (Vitamin D3) [Vitamin D3] 5,000 unit PO DAILY 08/23/16 Linagliptin [Tradjenta] 5 mg PO DAILY 08/23/16 Naproxen [Naprosyn -] 500 mg PO BID 08/23/16 Telmisartan 80 mg PO DAILY 08/23/16 Docusate Sodium [Colace -] 100 mg PO TID #90 capsule 08/01/17 Diclofenac Sodium [Voltaren] 100 gm TP TID PRN #3 tube 09/25/17 Oxycodone HCl/Acetaminophen [Percocet 10-325 mg Tablet] 1 each PO TID #90 tablet MDD 3 10/24/17 Amox-Tr/K Cl [Augmentin - 875Mg Tablet] 1 tab PO BID #10 tablet 10/28/17 Anemia: No Asthma: No Cancer: No Cardiac Disorders: No CVA: No COPD: No CHF: No DVT: No Dementia: No Diabetes: Yes (NIDDM) GI Disorders: Yes (HX.COLON POLYP, Diverticulitis, and H. pylori) Disorders: No HTN: Yes Hypercholesterolemia: Yes Liver Disease: No Seizures: No Thyroid Disease: No - Surgical History Abdominal Surgery: No Appendectomy: No Cardiac Surgery: No Cholecystectomy: No Lung Surgery: No Neurologic Surgery: No Orthopedic Surgery: Yes (LEFT SHOULDER) - Immunization History Td Vaccination: No (more than 10 years) - Suicide/Smoking/Psychosocial Hx Smoking Status: No Smoking History: Never smoked Have you smoked in the past 12 months: No Number of Cigarettes Smoked Daily: 0 Information on smoking cessation initiated: No Hx Alcohol Use: No Drug/Substance Use Hx: No Substance Use Type: None Hx Substance Use Treatment: No Review of Systems - Review of Systems Constitutional: No: Symptoms Reported HEENTM: No: Symptoms Reported Respiratory: No: SOB with Exertion Cardiac (ROS): No: Symptoms Reported ABD/GI: No: Symptoms Reported : No: Symptoms Reported Musculoskeletal: No: Joint Pain, Joint Swelling Integumentary: Yes: Other (laceration to the dorsum of the left hand base of left thumb. 2 cm). No: Bruising, Erythema Hematologic/Lymphatic: No: Symptoms Reported All Other Systems: Reviewed and Negative *Physical Exam - Vital Signs Last Vital Signs Temp Pulse Resp BP Pulse Ox 98.1 F 89 20 149/84 98 10/28/17 14:41 10/28/17 14:41 10/28/17 14:41 10/28/17 14:41 10/28/17 14:41 - Physical Exam General Appearance: Yes: Appropriately Dressed. No: Apparent Distress Respiratory/Chest: positive: Lungs Clear, Normal Breath Sounds Cardiovascular: positive: Regular Rhythm Lymphatic: negative: Adenopathy Musculoskeletal: positive: Normal Inspection Extremity: positive: Normal Capillary Refill. negative: Cyanosis, Delayed Capillary Refill, Swelling, Erythema, Inflammation Integumentary: positive: Normal Color, Dry, Other (2 cm laceration to the dorsum of the left hand at the base of the left thumb.). negative: Erythema, Swelling, Ecchymosis, Bruising Neurologic: positive: Alert, Normal Mood/Affect Procedures - Laceration/Wound Repair Hand Wound Length: to 2.5 cm Wound's Depth, Shape: linear Betadine Prep: Yes Wound Repaired With: Dermabond Medical Decision Making - Medical Decision Making 10/28/17 15:53 A/P: Patient here after dog bite from a dog on the street, or drug dog is unknown. Left hand with 2 cm linear laceration actively bleeding after pressure applied still bleeding had to apply small amount of Dermabond to control bleeding. Patient meets criteria for rabies vaccination, vaccination and immunoglobulin given Around wound. Instructions for return given to patient. Augmentin ordered. Patient to follow-up as instructed. 10/28/17 16:23 *DC/Admit/Observation/Transfer Diagnosis at time of Disposition: Dog bite Qualifiers: Encounter type: initial encounter Qualified Code(s): W54.0XXA - Bitten by dog, initial encounter - Discharge Dispostion Disposition: HOME Condition at time of disposition: Good Admit: No - Prescriptions Prescriptions: Amox-Tr/K Cl [Augmentin - 875Mg Tablet] 1 tab PO BID #10 tablet - Referrals Referrals: Ngozi Hugo MD [Primary Care Provider] - - Patient Instructions Printed Discharge Instructions: DI for Animal Bites Additional Instructions: Please keep hand clean and dry, follow-up as instructed If any increased redness swelling or signs of infection return to ER Please try to keep hand as dry as possible for the next 3 days. Keep covered when showering. - Post Discharge Activity Forms/Work/School Notes: Rabies Vaccination F/U Carly.
== END 2017-10-28 16:06 | disposition home or self-care (01) ==
LOC: JERFT 14:19
PROC: 0HQGXZZ Repair Left Hand Skin, External Approach (ICD-10-PCS; principal; 2017-10-28)
PROC: 3E0234Z Introduction of Serum, Toxoid and Vaccine into Muscle, Percutaneous Approach (ICD-10-PCS; 2017-10-28)
PROC: 3E0234Z Introduction of Serum, Toxoid and Vaccine into Muscle, Percutaneous Approach (ICD-10-PCS; 2017-10-28)
PROC: 3E0234Z Introduction of Serum, Toxoid and Vaccine into Muscle, Percutaneous Approach (ICD-10-PCS; 2017-10-28)
PROC: 3E0234Z Introduction of Serum, Toxoid and Vaccine into Muscle, Percutaneous Approach (ICD-10-PCS; 2017-10-28)
DX: S61.452A Open bite of left hand, initial encounter (principal); W54.0XXA Bitten by dog, initial encounter; Y93.89 Activity, other specified; Y92.480 Sidewalk as the place of occurrence of the external cause; Y99.8 Other external cause status; I10 Essential (primary) hypertension; E78.00 Pure hypercholesterolemia, unspecified; E11.9 Type 2 diabetes mellitus without complications; Z87.19 Personal history of other diseases of the digestive system; Z79.84 Long term (current) use of oral hypoglycemic drugs; Z88.8 Allergy status to other drugs, medicaments and biological substances
CPT/HCPCS: 12001; 90375; 90471; 90675; 90715; 96372; 99281-25

== ENCOUNTER 2017-10-31 11:07 | Emergency (ER) | payer OTHER ==
[2017-10-31 11:59] VITALS: BP 141/76; PULSE 83; TEMP 98.2; BMI 30.3
[2017-10-31] MEDS ORDERED: RABIES VACCINE (PCEC)/PF 2.5 UNIT/VIAL IM ONE (12:53)
--- NOTE | 2017-10-31 13:01 | PDOC ---
Suture Removal/Wound Check HPI - History of Present Illness Chief Complaint: Revisit,Rabies Injection Stated Complaint: REVISIT/ RAB VACCINE Time Seen by Provider: 10/31/17 12:50 History Source: Yes: Patient, Old Records Exam Limitations: Yes: No Limitations Treated at: [facility] ED Date of Last ED visit: 10/28/17 - Previous ED Treatment Type of procedure performed on last visit: Yes: Other Tetanus Immunization: Yes: Given at last ED visit Past History - Past Medical History Allergies/Adverse Reactions: Allergies Allergy/AdvReac Type Severity Reaction Status Date / Time cyclobenzaprine AdvReac Mild dizzy Verified 10/31/17 11:55 duloxetine HCl AdvReac Nausea Verified 10/31/17 11:55 [From Cymbalta] gabapentin AdvReac Nausea Verified 10/31/17 11:55 Home Medications: Ambulatory Orders Atorvastatin Calcium [Lipitor] 20 mg PO HS 08/18/16 Glipizide [Glipizide ER] 2.5 mg PO DAILY 08/18/16 Zolpidem Tartrate [Ambien] 10 mg PO DAILY 08/18/16 Cholecalciferol (Vitamin D3) [Vitamin D3] 5,000 unit PO DAILY 08/23/16 Linagliptin [Tradjenta] 5 mg PO DAILY 08/23/16 Naproxen [Naprosyn -] 500 mg PO BID 08/23/16 Telmisartan 80 mg PO DAILY 08/23/16 Docusate Sodium [Colace -] 100 mg PO TID #90 capsule 08/01/17 Diclofenac Sodium [Voltaren] 100 gm TP TID PRN #3 tube 09/25/17 Oxycodone HCl/Acetaminophen [Percocet 10-325 mg Tablet] 1 each PO TID #90 tablet MDD 3 10/24/17 Amox-Tr/K Cl [Augmentin - 875Mg Tablet] 1 tab PO BID #10 tablet 10/28/17 Anemia: No Asthma: No Cancer: No Cardiac Disorders: No CVA: No COPD: No CHF: No DVT: No Dementia: No Diabetes: Yes (NIDDM) GI Disorders: Yes (HX.COLON POLYP, Diverticulitis, and H. pylori) Disorders: No HTN: Yes Hypercholesterolemia: Yes Liver Disease: No Seizures: No Thyroid Disease: No - Surgical History Abdominal Surgery: No Appendectomy: No Cardiac Surgery: No Cholecystectomy: No Lung Surgery: No Neurologic Surgery: No Orthopedic Surgery: Yes (LEFT SHOULDER) - Immunization History Td Vaccination: No (more than 10 years) - Suicide/Smoking/Psychosocial Hx Smoking Status: No Smoking History: Never smoked Have you smoked in the past 12 months: No Number of Cigarettes Smoked Daily: 0 Information on smoking cessation initiated: No Hx Alcohol Use: No Drug/Substance Use Hx: No Substance Use Type: None Hx Substance Use Treatment: No Suture Removal/Wound Check PE - Physical Exam Laceration/Wound Check Symptoms: reports: None Pain Intensity: 0 Current Severity Level: None Maximum Severity Level: None Pain Localization: None Location of Laceration/Wound: right: Hand *Review of Systems - Review of Systems Able to Perform ROS?: Yes Constitutional: No: Symptoms Reported HEENTM: No: Symptoms Reported Respiratory: No: Symptoms reported Cardiac (ROS): No: Symptoms Reported ABD/GI: No: Symptoms Reported : No: Symptoms Reported Musculoskeletal: No: Symptoms Reported Integumentary: No: Symptoms Reported Neurological: No: Symptoms reported Medical Decision Making - Medical Decision Making 10/31/17 12:57 A/P: 72-year-old female with wound check for dog bites to the right hand. The patient states on 10/28 she was bitten by a dog on her right hand and it started receiving treatment for post exposure rabies. Hand well-appearing without erythema or exudates. No drainage noted from wound. No streaking noted Rabies vaccine 2.5 units IM Instructions to revisit on day 7 for additional rabies vaccine. *DC/Admit/Observation/Transfer Diagnosis at time of Disposition: Need for rabies vaccination - Discharge Dispostion Disposition: HOME Condition at time of disposition: Stable Admit: No - Referrals Referrals: Ngozi Hugo MD [Primary Care Provider] - - Patient Instructions Printed Discharge Instructions: DI for Rabies Vaccine Additional Instructions: Return to ER for any pain, redness, swelling, inability to move hand or any other concerns. Return to ER on Sunday, November 04 for her next dose of rabies vaccine. - Post Discharge Activity
== END 2017-10-31 13:08 | disposition home or self-care (01) ==
LOC: JERFT 11:07
PROC: 3E0234Z Introduction of Serum, Toxoid and Vaccine into Muscle, Percutaneous Approach (ICD-10-PCS; principal; 2017-10-31)
DX: Z20.3 Contact with and (suspected) exposure to rabies (principal)
CPT/HCPCS: 90675; 99281-25

== ENCOUNTER 2017-11-04 12:28 | Emergency (ER) | payer OTHER ==
--- NOTE | 2017-11-04 12:41 | PDOC ---
Suture Removal/Wound Check HPI - History of Present Illness Chief Complaint: Revisit,Rabies Injection Stated Complaint: REVISIT, RABIES INJECTION Time Seen by Provider: 11/04/17 12:40 History Source: Yes: Patient, Old Records Exam Limitations: Yes: No Limitations Treated at: [facility] ED Date of Last ED visit: 10/28/17 - Previous ED Treatment Type of procedure performed on last visit: Yes: Other Tetanus Immunization: Yes: Given at last ED visit Past History - Past Medical History Allergies/Adverse Reactions: Allergies Allergy/AdvReac Type Severity Reaction Status Date / Time cyclobenzaprine AdvReac Mild dizzy Verified 11/04/17 12:39 duloxetine HCl AdvReac Nausea Verified 11/04/17 12:39 [From Cymbalta] gabapentin AdvReac Nausea Verified 11/04/17 12:39 Home Medications: Ambulatory Orders Atorvastatin Calcium [Lipitor] 20 mg PO HS 08/18/16 Glipizide [Glipizide ER] 2.5 mg PO DAILY 08/18/16 Zolpidem Tartrate [Ambien] 10 mg PO DAILY 08/18/16 Cholecalciferol (Vitamin D3) [Vitamin D3] 5,000 unit PO DAILY 08/23/16 Linagliptin [Tradjenta] 5 mg PO DAILY 08/23/16 Naproxen [Naprosyn -] 500 mg PO BID 08/23/16 Telmisartan 80 mg PO DAILY 08/23/16 Docusate Sodium [Colace -] 100 mg PO TID #90 capsule 08/01/17 Diclofenac Sodium [Voltaren] 100 gm TP TID PRN #3 tube 09/25/17 Oxycodone HCl/Acetaminophen [Percocet 10-325 mg Tablet] 1 each PO TID #90 tablet MDD 3 10/24/17 Amox-Tr/K Cl [Augmentin - 875Mg Tablet] 1 tab PO BID #10 tablet 10/28/17 Anemia: No Asthma: No Cancer: No Cardiac Disorders: No CVA: No COPD: No CHF: No DVT: No Dementia: No Diabetes: Yes (NIDDM) GI Disorders: Yes (HX.COLON POLYP, Diverticulitis, and H. pylori) Disorders: No HTN: Yes Hypercholesterolemia: Yes Liver Disease: No Seizures: No Thyroid Disease: No - Surgical History Abdominal Surgery: No Appendectomy: No Cardiac Surgery: No Cholecystectomy: No Lung Surgery: No Neurologic Surgery: No Orthopedic Surgery: Yes (LEFT SHOULDER) - Immunization History Td Vaccination: No (more than 10 years) - Suicide/Smoking/Psychosocial Hx Smoking Status: No Smoking History: Never smoked Have you smoked in the past 12 months: No Number of Cigarettes Smoked Daily: 0 Hx Alcohol Use: No Drug/Substance Use Hx: No Substance Use Type: None Hx Substance Use Treatment: No Suture Removal/Wound Check PE - Physical Exam Laceration/Wound Check Symptoms: reports: None Maximum Severity Level: None Pain Localization: None Location of Laceration/Wound: left: Hand Pain Radiation: None *Review of Systems - Review of Systems Able to Perform ROS?: Yes All Other Systems: Reviewed and Negative Medical Decision Making - Medical Decision Making 11/04/17 12:41 A/P: 72-year-old female with wound check for dog bites to the right hand. The patient states on 10/28 she was bitten by a dog on her right hand and it started receiving treatment for post exposure rabies. Hand well-appearing without erythema or exudates. No drainage noted from wound. No streaking noted Rabies vaccine 2.5 units IM Instructions to revisit on day 14 for additional rabies vaccine. *DC/Admit/Observation/Transfer Diagnosis at time of Disposition: Need for rabies vaccination - Discharge Dispostion Disposition: HOME Condition at time of disposition: Stable Admit: No - Referrals - Patient Instructions Additional Instructions: Return in one week for final dose of rabies vaccine. Return sooner for any fevers, chills, streaking from the wound up her arm, redness to the wound, drainage or any other concerns. - Post Discharge Activity
[2017-11-04 12:43] VITALS: BP 139/83; PULSE 83; TEMP 98.6; BMI 30.3
[2017-11-04] MEDS ORDERED: RABIES VACCINE (PCEC)/PF 2.5 UNIT/VIAL IM ONE (12:46)
== END 2017-11-04 13:01 | disposition home or self-care (01) ==
LOC: JERFT 12:28
PROC: 3E0234Z Introduction of Serum, Toxoid and Vaccine into Muscle, Percutaneous Approach (ICD-10-PCS; principal; 2017-11-04)
DX: Z20.3 Contact with and (suspected) exposure to rabies (principal); S61.451D Open bite of right hand, subsequent encounter; W54.0XXD Bitten by dog, subsequent encounter
CPT/HCPCS: 90471; 90675; 99281-25

== ENCOUNTER 2017-11-11 12:23 | Emergency (ER) | payer OTHER ==
[2017-11-11 12:29] VITALS: BP 131/70; PULSE 65; TEMP 98.6; BMI 30.3
[2017-11-11] MEDS ORDERED: RABIES VACCINE (PCEC)/PF 2.5 UNIT/VIAL IM ONE (12:42)
--- NOTE | 2017-11-11 12:47 | PDOC ---
History of Present Illness - General Chief Complaint: Revisit,Rabies Injection Stated Complaint: REVISIT/ RABIES INJECTION Time Seen by Provider: 11/11/17 12:31 History Source: Patient Exam Limitations: No Limitations (72y/o F here for final rabies vaccine, s/p dog bite) Past History - Travel Traveled outside of the country in the last 30 days: No Close contact w/someone who was outside of country & ill: No - Past Medical History Allergies/Adverse Reactions: Allergies Allergy/AdvReac Type Severity Reaction Status Date / Time cyclobenzaprine AdvReac Mild dizzy Verified 11/11/17 12:29 duloxetine HCl AdvReac Nausea Verified 11/11/17 12:29 [From Cymbalta] gabapentin AdvReac Nausea Verified 11/11/17 12:29 Home Medications: Ambulatory Orders Atorvastatin Calcium [Lipitor] 20 mg PO HS 08/18/16 Glipizide [Glipizide ER] 2.5 mg PO DAILY 08/18/16 Zolpidem Tartrate [Ambien] 10 mg PO DAILY 08/18/16 Cholecalciferol (Vitamin D3) [Vitamin D3] 5,000 unit PO DAILY 08/23/16 Linagliptin [Tradjenta] 5 mg PO DAILY 08/23/16 Naproxen [Naprosyn -] 500 mg PO BID 08/23/16 Telmisartan 80 mg PO DAILY 08/23/16 Docusate Sodium [Colace -] 100 mg PO TID #90 capsule 08/01/17 Diclofenac Sodium [Voltaren] 100 gm TP TID PRN #3 tube 09/25/17 Oxycodone HCl/Acetaminophen [Percocet 10-325 mg Tablet] 1 each PO TID #90 tablet MDD 3 10/24/17 Amox-Tr/K Cl [Augmentin - 875Mg Tablet] 1 tab PO BID #10 tablet 10/28/17 Anemia: No Asthma: No Cancer: No Cardiac Disorders: No CVA: No COPD: No CHF: No DVT: No Dementia: No Diabetes: Yes (NIDDM) GI Disorders: Yes (HX.COLON POLYP, Diverticulitis, and H. pylori) Disorders: No HTN: Yes Hypercholesterolemia: Yes Liver Disease: No Seizures: No Thyroid Disease: No - Surgical History Abdominal Surgery: No Appendectomy: No Cardiac Surgery: No Cholecystectomy: No Lung Surgery: No Neurologic Surgery: No Orthopedic Surgery: Yes (LEFT SHOULDER) - Immunization History Td Vaccination: No (more than 10 years) - Suicide/Smoking/Psychosocial Hx Smoking Status: No Smoking History: Never smoked Have you smoked in the past 12 months: No Number of Cigarettes Smoked Daily: 0 Hx Alcohol Use: No Drug/Substance Use Hx: No Substance Use Type: None Hx Substance Use Treatment: No Review of Systems - Review of Systems Is the patient limited [place]ian proficient: No Constitutional: No: Chills, Fever Respiratory: No: Cough, Orthopnea, Shortness of Breath Cardiac (ROS): No: Chest Pain Integumentary: No: Dryness, Erythema, Flushing, Pruritus, Rash, Sweating *Physical Exam - Vital Signs Last Vital Signs Temp Pulse Resp BP Pulse Ox 98.6 F 65 18 131/70 99 11/11/17 12:26 11/11/17 12:26 11/11/17 12:26 11/11/17 12:26 11/11/17 12:26 - Physical Exam General Appearance: Yes: Nourished Extremity: positive: Normal Capillary Refill, Normal Inspection, Normal Range of Motion (L hand: well healed wound w/o erythema or discharge, no drainage) *DC/Admit/Observation/Transfer Diagnosis at time of Disposition: Need for rabies vaccination - Discharge Dispostion Disposition: HOME Condition at time of disposition: Stable Admit: No - Referrals Referrals: Ngozi Hugo MD [Primary Care Provider] - - Patient Instructions Printed Discharge Instructions: DI for Rabies Vaccine - Post Discharge Activity
== END 2017-11-11 12:45 | disposition home or self-care (01) ==
LOC: JERFT 12:23
DX: Z20.3 Contact with and (suspected) exposure to rabies (principal)
CPT/HCPCS: 90675; 99281-25

== ENCOUNTER 2019-01-12 12:16 | Emergency (ER) | payer OTHER ==
[2019-01-12 12:25] VITALS: BMI 30.3
--- NOTE | 2019-01-12 12:57 | PDOC ---
History of Present Illness - General Chief Complaint: Back Pain Stated Complaint: LOWER BACK PAIN Time Seen by Provider: 01/12/19 12:56 - History of Present Illness Initial Comments: 01/12/19 14:58 Pt is a 73y/o F with hx of chronic back pain, htn , diabetes, anxiety, depression and sleep apnea, presents to the ED with 2 wks of worsening back pain. She rates the pain as a 10/10 stabbing pain radiating down from her lower right back down to her leg.Her chronic pain is managed by a pain clinic. She took some percocet yesterday and experienced some temporary relief but hasn't taken anything today. She has been undergoing physical therapy over the last 6 weeks and received an epidural injection approx. 2 wks ago.She reports right leg weakness and some increased difficulty walking and feelings of bladder pressure with dysuria..she denies any trauma. falls,bowel incontinence,fevers or chills. 01/12/19 15:18 Past History - Past Medical History Allergies/Adverse Reactions: Allergies Allergy/AdvReac Type Severity Reaction Status Date / Time baclofen AdvReac Intermediate dizzy Verified 01/12/19 12:25 cyclobenzaprine AdvReac Mild dizzy Verified 01/12/19 12:25 duloxetine HCl AdvReac Nausea Verified 01/12/19 12:25 [From Cymbalta] gabapentin AdvReac Nausea Verified 01/12/19 12:25 Home Medications: Ambulatory Orders Atorvastatin Calcium [Lipitor] 20 mg PO HS 08/18/16 Glipizide [Glipizide ER] 2.5 mg PO DAILY 08/18/16 Zolpidem Tartrate [Ambien] 10 mg PO DAILY 08/18/16 Linagliptin [Tradjenta] 5 mg PO DAILY 08/23/16 Naproxen [Naprosyn -] 500 mg PO BID 08/23/16 Ammonium Lactate Cream [Lac-Hydrin 12% *Cream*] 1 applic TP BID #1 tube Diclofenac Sodium [Voltaren] 100 gm TP TID PRN #3 tube 08/22/18 Ergocalciferol (Vitamin D2) [Vitamin D2] 50,000 unit PO Q7D #4 capsule 09/19/18 Polyethylene Glycol 3350 [Miralax (For Bowel Prep) -] 17 gm PO DAILY #1 bottle 09/19/18 Telmisartan/Hydrochlorothiazid [Telmisartan-Hctz 80-25 mg Tab] 1 each PO DAILY 09/19/18 Docusate Sodium [Colace -] 100 mg PO TID #90 capsule 11/14/18 Pramipexole Dihydrochloride [Mirapex -] 0.25 mg PO HS #30 tablet 11/14/18 Acetaminophen [Tylenol .Extra-Strength -] 500 mg PO Q6H PRN #100 tablet Blood Sugar Diagnostic [Glucose Test Strip] 1 each MC QID PRN #100 strip Oxycodone HCl/Acetaminophen [Percocet 10-325 mg Tablet] 1 each PO TID #90 tablet MDD 3 12/17/18 Cephalexin Monohydrate [Keflex -] 500 mg PO BID #10 capsule 01/12/19 Methylprednisolone [Medrol Dose William] 4 mg PO ASDIR #21 tablet 01/12/19 Anemia: No Asthma: No Cancer: No Cardiac Disorders: No CVA: No COPD: No CHF: No DVT: No Dementia: No Diabetes: Yes (NIDDM) GI Disorders: Yes (HX.COLON POLYP, Diverticulitis, and H. pylori) Disorders: No HTN: Yes Hypercholesterolemia: Yes Liver Disease: No Seizures: No Thyroid Disease: No - Surgical History Abdominal Surgery: No Appendectomy: No Cardiac Surgery: No Cholecystectomy: No Lung Surgery: No Neurologic Surgery: No Orthopedic Surgery: Yes (LEFT SHOULDER) - Immunization History Td Vaccination: No (more than 10 years) - Suicide/Smoking/Psychosocial Hx Smoking Status: No Smoking History: Never smoked Have you smoked in the past 12 months: No Number of Cigarettes Smoked Daily: 0 Hx Alcohol Use: No Drug/Substance Use Hx: No Substance Use Type: None Hx Substance Use Treatment: No Review of Systems - Review of Systems Constitutional: No: Chills, Diaphoresis, Fever, Loss of Appetite HEENTM: Yes: Other (denies any headache) Respiratory: No: Cough, Shortness of Breath Cardiac (ROS): No: Chest Pain ABD/GI: No: Diarrhea, Vomiting : Yes: Dysuria, Incontinence, Urgency. No: Hematuria, Pain Musculoskeletal: Yes: See HPI Neurological: Yes: See HPI All Other Systems: Reviewed and Negative *Physical Exam - Vital Signs Last Vital Signs Temp Pulse Resp BP Pulse Ox 98.3 F 79 18 140/80 98 01/12/19 12:21 01/12/19 12:21 01/12/19 12:21 01/12/19 12:21 01/12/19 12:21 - Physical Exam Respiratory/Chest: positive: Lungs Clear, Normal Breath Sounds. negative: Rales , Rhonchi, Wheezing Cardiovascular: positive: Regular Rhythm, Regular Rate, S1, S2 Gastrointestinal/Abdominal: positive: Normal Bowel Sounds, Soft, Other ( suprapubic tenderness ) Rectal Exam: positive: normal rectal tone Musculoskeletal: positive: Vertebral Tenderness (lumbar sacral point tenderness and paraspinal tenderness), Other (No erythema on inspection, swollen right knee. Tenderness in right hip and down the right leg.4/5 strength right leg. 5/ 5 strength on left leg. decreases ROM on the right. Walks with a limp & weight bearing on left.). negative: CVA Tenderness, CVA Tenderness (R) Extremity: positive: Normal Capillary Refill Neurologic: positive: Fully Oriented, Alert, Other Deep Tendon Reflexes: Knee (L): 3+, Knee (R): 1+ ED Treatment Course - LABORATORY CBC & Chemistry Diagram: 01/12/19 14:59 01/12/19 14:59 Medical Decision Making - Medical Decision Making 01/12/19 14:24 73y/o F with hx of chronic back pain syndrome, HTN, diabetes, depression/ anxiety presenting to the Ed with worsening back pain over the last 2 weeks DDx: Sciatica vs epidural abscess vs cauda equina vs vertebral fracture Labs/Imaging:Cbc, cmp, pt/inr, ptt, type and screen,UA and urine culture Bladder U/S MRI 01/12/19 14:52 Bladder U/S: 20 minute post-void residual volume of 56cc. 01/12/19 19:07 MRI Impression: 1. Degenerative changes at all levels in the lumbar spine as described above. The worst level is L4 -L5. Please refer to the report above for detailed evaluation at each level. 2. No evidence of epidural abscess or other fluid collection. Case d/w NSGY, Dr. Murcia who does not recommend any acute intervention. D/w patient and will call NSGY office tomorrow morning. Will give steroids and medrol dose pack. Will also treat symptomatic UTI despite relatively normal UA as pt will be on steroids and have mild immunocompromised state. Pt understands and will d/c with PCP and NSGY f/u. *DC/Admit/Observation/Transfer Diagnosis at time of Disposition: Low back pain Qualifiers: Chronicity: acute Back pain laterality: right Sciatica presence: with sciatica Sciatica laterality: sciatica laterality unspecified Qualified Code(s): M54.40 - Lumbago with sciatica, unspecified side - Discharge Dispostion Disposition: HOME Condition at time of disposition: Stable Decision to Admit order: No - Prescriptions Prescriptions: Cephalexin Monohydrate [Keflex -] 500 mg PO BID #10 capsule Methylprednisolone [Medrol Dose William] 4 mg PO ASDIR #21 tablet - Referrals Referrals: Ngozi Hugo MD [Primary Care Provider] - Chadd Quan MD, FAANS [Staff Physician] - - Patient Instructions Printed Discharge Instructions: DI for Low Back Pain Additional Instructions: Please follow up with Dr. Murcia tomorrow morning for your low back pain. Please return if you develop incontinence, fever, chills, nausea, vomiting, numbness, tingling, or worsening weakness. Please also follow up with your primary care doctor in 1-2 days. Take all of your medications as prescribed. - Post Discharge Activity
[2019-01-12] MEDS ORDERED: SODIUM CHLORIDE 0.9% 500 ML INFUS.BAG IV ONE (14:37)
--- NOTE | 2019-01-12 14:38 | PDOC ---
Documentation entered by Han Duran SCRIBE, acting as scribe for Anette Rees DO. Anette Rees DO: This documentation has been prepared by the Roger kathleen Nirvannie, SCRIBE, under my direction and personally reviewed by me in its entirety. I confirm that the documentation accurately reflects all work, treatment, procedures, and medical decision making performed by me. Attending Attestation - Resident Resident Name: JesusAriel - ED Attending Attestation I have performed the following: I have examined & evaluated the patient, The case was reviewed & discussed with the resident, I agree w/resident's findings & plan - HPI HPI: 01/12/19 14:41 The patient is a 73 year old female, with a significant past medical history of hemorrhoids, diverticulosis, NIDDM, HTN, fibromyalgia, arthritis, HLD, chronic right neck pain, and chronic back pain, who presents to the emergency department with, new onset weakness and acute on chronic back pain with paresthesias. She describes her pain as onsetting in the back and radiating down the right leg to the knee. Patient endorses getting an epidural injection 2 months ago and a steroid injection last week by her pain management doctor. She denies any urinary or bowel incontinence. She denies recent chest pain or shortness of breath. Allergies: cyclobenzaprine, duloxetine HCL, gabapentin Primary Care Physician: Dr. Hugo - Physicial Exam PE: 01/12/19 14:41 Constitutional: Awake, alert, oriented. No acute distress. Head: Normocephalic. Atraumatic Eyes: PERRL. EOMI. Conjunctivae are not pale. ENT: Mucous membranes are moist and intact. Posterior pharynx without exudates or erythema. Uvula midline. Neck: Supple. Full ROM. No lymphadenopathy. Cardiovascular: Regular rate. Regular rhythm. S1, S2 regular. Distal pulses are 2+ and symmetric. Pulmonary/Chest: No evidence of respiratory distress. Clear to auscultation bilaterally No wheezing, rales or rhonchi. Abdominal: +Mild right suprapubic tenderness. Soft and non-distended. No rebound, guarding or rigidity. No organomegaly. No palpable masses. Good bowel sounds. Back: Right lower back pain. SI joint tenderness. No CVA tenderness. Musculoskeletal: No edema. No cyanosis. No clubbing. Full range of motion in all extremities. No calf tenderness. Radial/pedal pulses are intact and 2+ bilaterally Skin: Skin is warm and dry. No petechiae. No purpura. Neurological: Alert and oriented to person, place, and time. Cranial nerves II -XII are grossly intact. Normal speech. 4/5 strength R>L. Decreased sensation on the right upper and lower extremities. Psychiatric: Good eye contact. Normal interaction, affect and behavior. - Medical Decision Making 01/12/19 14:35 I, Dr. Anette Rees, DO, attest that this document has been prepared under my direction and personally reviewed by me in its entirety. I further attest, that it accurately reflects all work, treatment, procedures and medical decision -making performed by me. 01/12/19 14:35 a/p: 73yo female with hx of lbp who follows with pain management with worsening lbp and new weakness down R leg and paresthesias, decreased sensation -pt also c/o hesitancy with urination -no dysuria no hematuria -no incontinence -pt with steroid injection to back last week by pain management and epidural in the past -concern for nerve impingment from herniated disc in back causing pain -normal rectal tone -also concern for uti -will send labs, ua - pre and post void residual -mri back 01/12/19 14:53 20 min post void shows 56cc 01/12/19 18:59 MRI results discussed with Dr. Quan who receommends outrob sellers in the office tomorrow recommends medrol dose pack will start steroids in the ED mild uti on labs will treat with keflex given urgency and hesitancy 01/12/19 19:01 pt stable for dc to home feels better after steroids, discussed follow up with Ayleen
[2019-01-12 15:22] LABS: INR 1.09 (0.83-1.09); PROTHROMBIN TIME (PATIENT) 12.9 SEC (9.7-13.0)
[2019-01-12 15:24] LABS: ACTIVATED PTT 33.5 SECONDS (25.2-36.5)
[2019-01-12 15:31] LABS: ALBUMIN 3.6 g/dl (3.4-5.0); BILIRUBIN,TOTAL 0.6 mg/dL (0.2-1); BLOOD UREA NITROGEN 15.3 mg/dL (7-18); CALCIUM 8.9 mg/dL (8.5-10.1); CREATININE 0.9 mg/dL (0.55-1.3); POTASSIUM 4.2 mmol/L (3.5-5.1); TOT PROT 6.9 g/dl (6.4-8.2)
[2019-01-12 15:53] LABS: BASO % 0.4 % (0-2.0); EOS % 1.9 % (0-4.5); HEMATOCRIT 36.6 % (32.4-45.2); HEMOGLOBIN 11.9 GM/dL (10.7-15.3); MCH 28.9 pg (25.7-33.7); MCHC 32.6 g/dl (32.0-36.0); MEAN CELL VOLUME 88.6 fl (80-96); MEAN PLT VOLUME 7.9 fl (7.5-11.1); MONO % 7.9 % (3.8-10.2); NEUT % 59.8 % (42.8-82.8); RBC 4.13 M/mm3 (3.60-5.2); RDW 13.9 % (11.6-15.6); WHITE BLOOD COUNT 7.2 K/mm3 (4.0-10.0)
[2019-01-12 15:56] LABS: PLATELET COUNT 226 K/MM3 (134-434)
[2019-01-12 17:10] LABS: EPI CELLS 0.7 /HPF (0-5/HPF); HYALINE CASTS 0 /lpf (0-8); URINE APPEARANCE CLEAR; URINE BACTERIA 4.2 /hpf (NEGATIVE); URINE BILIRUBIN NEGATIVE (NEGATIVE); URINE COLOR YELLOW; URINE GLUCOSE (UA) NEGATIVE (NEGATIVE); URINE KETONE NEGATIVE (NEGATIVE); URINE LEUK ESTERASE TRACE (NEGATIVE); URINE NITRITE NEGATIVE (NEGATIVE); URINE PROTEIN NEGATIVE (NEGATIVE); URINE RBC 5 /hpf (0-4); URINE UROBILINOGEN 0.2 mg/dL (0.2-1.0); URINE WBC 3 /hpf (0-5)
[2019-01-12 17:22] VITALS: BP 137/78; PULSE 76; TEMP 97.9
[2019-01-12] MEDS ORDERED: predniSONE 20 MG TABLET (UD) PO ONE (17:56)
[2019-01-12] MEDS ORDERED: CEPHALEXIN MONOHYDRATE 500 MG CAPSULE (UD) PO ONE (18:59)
[2019-01-12] MEDS ORDERED: predniSONE 20 MG TABLET (UD) ONE (18:59)
[2019-01-12] MEDS ORDERED: CEPHALEXIN MONOHYDRATE 500 MG CAPSULE (UD) ONE (19:21)
== END 2019-01-12 19:29 | disposition home or self-care (01) ==
LOC: JER 12:16
PROC: 3E0337Z Introduction of Electrolytic and Water Balance Substance into Peripheral Vein, Percutaneous Approach (ICD-10-PCS; principal; 2019-01-12)
DX: M54.40 Lumbago with sciatica, unspecified side (principal); I10 Essential (primary) hypertension; E11.9 Type 2 diabetes mellitus without complications; F41.8 Other specified anxiety disorders; G89.29 Other chronic pain
CPT/HCPCS: 36415; 72158-TC; 80053; 81003; 85025; 85610; 85730; 86850; 86900; 86901; 87086; 96360; 99282-25; A9579

== ENCOUNTER 2019-02-17 08:14 | Day surgery (SDC) | payer OTHER ==
[2019-02-14 19:28] VITALS: BMI 33.9
[2019-02-17] MEDS ORDERED: PROPOFOL 20 ML ONE ×3 (10:01)
[2019-02-17] MEDS ORDERED: LIDOCAINE HCL/PF 2% SDV 5ML VIAL ONE (10:01)
[2019-02-17 13:26] VITALS: TEMP 97.5
[2019-02-17 13:32] VITALS: BP 113/57; PULSE 65
== END 2019-02-17 11:00 | disposition home or self-care (01) ==
LOC: FASU-ENDO 08:14
PROVIDERS: ATTEND Internal Medicine Gastroenterology
PROC: 0DJD8ZZ Inspection of Lower Intestinal Tract, Via Natural or Artificial Opening Endoscopic (ICD-10-PCS; principal; 2019-02-17 10:02)
DX: Z86.010 Personal history of colon polyps (principal)
CPT/HCPCS: 82962

== ENCOUNTER 2019-04-14 18:40 | Emergency (ER) | payer OTHER ==
[2019-04-14 19:02] VITALS: BMI 32.3
--- NOTE | 2019-04-14 19:35 | PDOC ---
Documentation entered by Kerry Rodriguez SCRIBE, acting as scribe for Arlene Hernandez MD. Arlene Hernandez MD: This documentation has been prepared by the Jennifer kathleen Brenda, SCRIBE, under my direction and personally reviewed by me in its entirety. I confirm that the documentation accurately reflects all work, treatment, procedures, and medical decision making performed by me. Attending Attestation - Resident Resident Name: Kb Faria - ED Attending Attestation I have performed the following: I have examined & evaluated the patient, The case was reviewed & discussed with the resident, I agree w/resident's findings & plan, Exceptions are as noted - HPI HPI: 04/14/19 19:31 73-year-old female brought in by ambulance after walking backwards and falling on her buttocks , She was unpacking her suitcase and stepped backwards and the suitcase moved causing her to loose her footing and she fell onto her buttocks she now has complaint of hip pain 04/14/19 19:47 - Physicial Exam PE: 04/14/19 19:34 petite wnwd 73 yo female p/w hip pain s/p fall head ncat neck no cervical midline tenderness lungs cta b/l cvs [id number] abd no rebound, no guarding Extremities no deformities but pain to rt buttocks and rt femur ,able to lift legs off the gurney skin warm and dry neuro [id number] 04/14/19 22:43 - Medical Decision Making 04/14/19 19:32 pt requires imaging studies to r/o dislocation or fracture she denies hitting her head ,she denies LOC she arrived with a c collar on that was positioned over her lower face. She did not have any midline cervical vertebral tenderness 04/14/19 22:47 plain radiographs did not reveals any acute femur fracture or pelvic fracture but pt still coulfnt ambulate 04/15/19 00:[address] was NEGATIVE for any acute occult pelvic fractures and pt received pain meds and could ambulate d/c home imp leg trauma/contusion/muscle strain
[2019-04-14] MEDS ORDERED: ACETAMINOPHEN 500 MG TABLET (FP) PO ONE (19:47)
--- NOTE | 2019-04-14 19:51 | PDOC ---
History of Present Illness - General Chief Complaint: Injury Stated Complaint: FALL Time Seen by Provider: 04/14/19 19:29 History Source: Patient, Family Exam Limitations: No Limitations Past History - Past Medical History Allergies/Adverse Reactions: Allergies Allergy/AdvReac Type Severity Reaction Status Date / Time baclofen AdvReac Intermediate dizzy Verified 04/14/19 19:02 duloxetine HCl AdvReac Intermediate Nausea Verified 04/14/19 19:02 [From Cymbalta] gabapentin AdvReac Intermediate Nausea Verified 04/14/19 19:02 cyclobenzaprine AdvReac Mild dizzy Verified 04/14/19 19:02 Home Medications: Ambulatory Orders Atorvastatin Calcium [Lipitor] 20 mg PO HS 08/18/16 Glipizide [Glipizide ER] 2.5 mg PO DAILY 08/18/16 Zolpidem Tartrate [Ambien] 10 mg PO DAILY 08/18/16 Linagliptin [Tradjenta] 5 mg PO DAILY 08/23/16 Telmisartan/Hydrochlorothiazid [Telmisartan-Hctz 80-25 mg Tab] 1 each PO DAILY 09/19/18 Diclofenac Sodium [Voltaren] 100 gm TP TID PRN #3 tube 01/15/19 Ammonium Lactate Cream [Lac-Hydrin 12% *Cream*] 1 applic TP BID #1 tube Docusate Sodium [Colace -] 100 mg PO TID #90 capsule 02/14/19 Ergocalciferol (Vitamin D2) [Vitamin D2] 50,000 unit PO Q7D #4 capsule 02/14/19 Polyethylene Glycol 3350 [Miralax (For Bowel Prep) -] 17 gm PO DAILY #1 bottle 02/14/19 Sitagliptin Phosphate [Januvia] 50 mg PO DAILY 02/14/19 Naproxen [Naprosyn -] 500 mg PO BID 7 Days #14 tablet 04/15/19 Acetaminophen [Tylenol .Extra-Strength -] 500 mg PO Q6H PRN #100 tablet Oxycodone HCl/Acetaminophen [Percocet 10-325 mg Tablet] 1 each PO TID #90 tablet MDD 3 04/16/19 Anemia: No Asthma: No Cancer: No Cardiac Disorders: No CVA: No COPD: No CHF: No DVT: No Dementia: No Diabetes: Yes (NIDDM) GI Disorders: Yes (HX.COLON POLYP, Diverticulitis, and H. pylori) Disorders: No HTN: Yes Hypercholesterolemia: Yes Liver Disease: No Seizures: No Thyroid Disease: No - Surgical History Abdominal Surgery: No Appendectomy: No Cardiac Surgery: No Cholecystectomy: No Lung Surgery: No Neurologic Surgery: No Orthopedic Surgery: Yes (LEFT SHOULDER) - Immunization History Td Vaccination: No (more than 10 years) - Psycho Social/Smoking Cessation Hx Smoking Status: No Smoking History: Never smoked Have you smoked in the past 12 months: No Number of Cigarettes Smoked Daily: 0 Information on smoking cessation initiated: No Hx Alcohol Use: No Drug/Substance Use Hx: No Substance Use Type: None Hx Substance Use Treatment: No *Physical Exam - Vital Signs Last Vital Signs Temp Pulse Resp BP Pulse Ox 97.7 F 81 18 160/96 99 04/14/19 18:49 04/14/19 18:49 04/14/19 18:49 04/14/19 18:49 04/14/19 18:49 ED Treatment Course - RADIOLOGY Radiology Studies Ordered: Category Date Time Status HIP & PELVIS-LEFT [RAD] Stat Radiology 04/14/19 19:47 Ordered HIP & PELVIS-RIGHT [RAD] Stat Radiology 04/14/19 19:47 Ordered Medical Decision Making - Medical Decision Making 04/14/19 19:49 HPI: 73F PMH HTN, DM, Anxiety presenting after fall. Pt was unpacking her suitcase, took a step back, and slipped on the suitcase subsequently landing on her right side. Denies head strike and LOC. Pt felt a "tear" of her right hamstring. Currently complaining of right hip pain radiating down the leg and of concurrent left hip and hamstring pain. Worse on Right. PMH see chart; patient has existing right knee meniscus tear due for knee replacement ROS: CONSTITUTIONAL: Denies F / C HEENT: Denies headache, lightheadedness RESP: Denies SOB CARD: Denies chest pain, palpitations GI: Denies N / V , abdominal pain MSK: Denies myalgias. Denies costal margin pain. Denies upper extr. pain. NEURO: Denies numbness, tingling PE: GEN: Mild distress 2/2 pain; cooperative, well appearing. AAOx3 HEENT: NC/AT. No facial asymmetry. Normal voice. Supple neck w/ FROM. No Midline tenderness of neck CV: S1/S2, RRR, no m/r/g LUNG: CTAB, no wheezes, crackles, rales, rhonchi. GI: soft, ndnt, +BS, no guarding, no rebound. No masses. EXTREMITIES: No obvious deformities of the UE or LE. LE equal in length. SKIN: warm, dry, normal turgor PSYCH: normal mood and affect NEURO: Sensation grossly intact throughout. Moving all extremities - LE motion limited by pain. BACK: no step offs, no vertebral midline tenderness. + TTP of sacrum and b/l posterior pelvis MDM: 73F c/o right and left hip pain radiating down leg s/p mechanical fall w/o headstrike or LOC. - Pain control - XR Hips - BGM 04/14/19 20:20 Sister at bedside requesting MRI. Discussed indications and clinically reasoning required for MRI. 04/14/19 22:56 No obvious fracture on films on review with ED attending. Patient states tylenol helped but pain is severe Patient able to stand - torodol IM - oxycodone - CT pelvis due to concern for occult fracture signed out to night team Discharge - Discharge Information Problems reviewed: Yes Clinical Impression/Diagnosis: Fall Qualifiers: Encounter type: initial encounter Qualified Code(s): W19.XXXA - Unspecified fall, initial encounter Condition: Improved Disposition: HOME - Additional Discharge Information Prescriptions: Naproxen [Naprosyn -] 500 mg PO BID 7 Days #14 tablet - Follow up/Referral Referrals: Mikal Starkey DO [Staff Physician] - - Patient Discharge Instructions Patient Printed Discharge Instructions: How to Prevent Falls Additional Instructions: You have been seen in the Emergency Department for your hip injury and pain. Your X-rays and CT scan show no signs of fracture or dislocation. Your pain is most likely a strain or sprain of a ligament or muscle. We have given you a referral to an Orthopedic Surgeon for further evaluation. Give his office a call to set up an appointment for this week. If you experience pain, you can take Tylenol or Ibuprofen as directed on the medication bottle, but do not exceed 3g of Ibuprofen or 4g of Tylenol a day. We have also sent Naprosyn to your pharmacy if you would prefer to take that - take as directed on the bottle. Follow the RICE protocol to help with the healing process: R - Rest. Rest and protect the injured or sore area. Stop, change, or take a break from any activity that may be causing your pain or soreness. I - Ice. Cold will reduce pain and swelling. Apply an ice or cold pack right away to prevent or minimize swelling. Apply the ice or cold pack for 10 to 20 minutes, 3 or more times a day. After 48 to 72 hours, if swelling is gone, apply heat to the area that hurts. Do not apply ice or heat directly to the skin. Place a towel over the cold or heat pack before applying it to the skin. C - Compression. Compression, or wrapping the injured or sore area with an elastic bandage (such as an Sincere wrap), will help decrease swelling. Don't wrap it too tightly, because this can cause more swelling below the affected area. Loosen the bandage if it gets too tight. Signs that the bandage is too tight include numbness, tingling, increased pain, coolness, or swelling in the area below the bandage. E - Elevation. Elevate the injured or sore area on pillows while applying ice and anytime you are sitting or lying down. Try to keep the area at or above the level of your heart to help minimize swelling. Return to the ED immediately if you experience worsening pain not controlled by over the counter medications, numbness or tingling, weakness, fever, worsening swelling, or any other new or worsening symptom. - Post Discharge Activity
[2019-04-14] MEDS ORDERED: ACETAMINOPHEN 325 MG TABLET (FP) ONE (20:40)
[2019-04-14] MEDS ORDERED: KETOROLAC TROMETHAMINE 60 MG/2 ML VIAL IM ONE (22:26)
[2019-04-14] MEDS ORDERED: oxyCODONE HCL 5 MG TABLET PO ONE (22:27)
[2019-04-14] MEDS ORDERED: KETOROLAC TROMETHAMINE 60 MG/2 ML VIAL ONE (22:31)
[2019-04-14] MEDS ORDERED: oxyCODONE HCL 5 MG TABLET ONE (22:31)
[2019-04-14 23:53] VITALS: BP 130/66; PULSE 73; TEMP 97.9
--- NOTE | 2019-04-15 00:03 | PDOC ---
*Physical Exam - Vital Signs Last Vital Signs Temp Pulse Resp BP Pulse Ox 97.9 F 73 16 130/66 96 04/14/19 23:50 04/14/19 23:50 04/14/19 23:50 04/14/19 23:50 04/14/19 23:50 ED Treatment Course - ADDITIONAL ORDERS Additional order review: Laboratory Results 04/14/19 20:55 POC Glucometer 111 04/14/19 20:55 POC Glucometer 111 - Medications Given in the ED: ED Medications Discontinued Medications Generic Name Dose Route Start Last Admin Trade Name Kavitha PRN Reason Stop Dose Admin Acetaminophen 975 mg 04/14/19 19:47 04/14/19 20:45 Tylenol - PO 04/14/19 19:48 975 mg ONCE ONE Administration Ketorolac Tromethamine 60 mg 04/14/19 22:26 04/14/19 22:40 Toradol Injection - IM 04/14/19 22:27 60 mg ONCE ONE Administration Oxycodone HCl 5 mg 04/14/19 22:27 04/14/19 22:40 Roxicodone - PO 04/14/19 22:28 5 mg ONCE ONE Administration Medical Decision Making - Medical Decision Making 04/15/19 00:00 Sign out received. Pt seen and assessed at bedside. Pending CT pelvis to r/o occult fx. If negative, dc w/ortho f/u. 73yo F presenting w/b/l hip pain R>L s/p mechanical fall. BGM 111. No obvious fracture on films on review with ED attending. Pt now able to stand. Pain improved with tylenol, torodol, and oxycodone. 04/15/19 00:44 CT read: no acute fx or dislocation Will dc home with naprosyn and ortho f/u. Return precautions given. Pt understands all dc instructions and all questions were answered. Discharge - Discharge Information Problems reviewed: Yes Clinical Impression/Diagnosis: Fall Qualifiers: Encounter type: initial encounter Qualified Code(s): W19.XXXA - Unspecified fall, initial encounter Condition: Improved Disposition: HOME - Admission No - Additional Discharge Information Prescriptions: Naproxen [Naprosyn -] 500 mg PO BID 7 Days #14 tablet - Follow up/Referral Referrals: Mikal Starkey DO [Staff Physician] - - Patient Discharge Instructions Patient Printed Discharge Instructions: How to Prevent Falls Additional Instructions: You have been seen in the Emergency Department for your hip injury and pain. Your X-rays and CT scan show no signs of fracture or dislocation. Your pain is most likely a strain or sprain of a ligament or muscle. We have given you a referral to an Orthopedic Surgeon for further evaluation. Give his office a call to set up an appointment for this week. If you experience pain, you can take Tylenol or Ibuprofen as directed on the medication bottle, but do not exceed 3g of Ibuprofen or 4g of Tylenol a day. We have also sent Naprosyn to your pharmacy if you would prefer to take that - take as directed on the bottle. Follow the RICE protocol to help with the healing process: R - Rest. Rest and protect the injured or sore area. Stop, change, or take a break from any activity that may be causing your pain or soreness. I - Ice. Cold will reduce pain and swelling. Apply an ice or cold pack right away to prevent or minimize swelling. Apply the ice or cold pack for 10 to 20 minutes, 3 or more times a day. After 48 to 72 hours, if swelling is gone, apply heat to the area that hurts. Do not apply ice or heat directly to the skin. Place a towel over the cold or heat pack before applying it to the skin. C - Compression. Compression, or wrapping the injured or sore area with an elastic bandage (such as an Sincere wrap), will help decrease swelling. Don't wrap it too tightly, because this can cause more swelling below the affected area. Loosen the bandage if it gets too tight. Signs that the bandage is too tight include numbness, tingling, increased pain, coolness, or swelling in the area below the bandage. E - Elevation. Elevate the injured or sore area on pillows while applying ice and anytime you are sitting or lying down. Try to keep the area at or above the level of your heart to help minimize swelling. Return to the ED immediately if you experience worsening pain not controlled by over the counter medications, numbness or tingling, weakness, fever, worsening swelling, or any other new or worsening symptom. - Post Discharge Activity
== END 2019-04-15 01:06 | disposition home or self-care (01) ==
LOC: JER 18:40
PROC: 3E0233Z Introduction of Anti-inflammatory into Muscle, Percutaneous Approach (ICD-10-PCS; principal; 2019-04-14)
DX: S76.012A Strain of muscle, fascia and tendon of left hip, initial encounter (principal); S76.011A Strain of muscle, fascia and tendon of right hip, initial encounter; W18.09XA Striking against other object with subsequent fall, initial encounter; Y93.89 Activity, other specified; Y92.038 Other place in apartment as the place of occurrence of the external cause; Y99.8 Other external cause status; I10 Essential (primary) hypertension; E78.00 Pure hypercholesterolemia, unspecified; E11.9 Type 2 diabetes mellitus without complications; Z79.84 Long term (current) use of oral hypoglycemic drugs; Z88.8 Allergy status to other drugs, medicaments and biological substances
CPT/HCPCS: 72192-TC; 73523-TC-FY; 82962; 96372; 99281-25

== ENCOUNTER 2020-02-06 04:52 | Day surgery (SDC) | payer OTHER ==
[2020-02-05 08:50] VITALS: BMI 33.9
--- NOTE | 2020-02-06 11:38 | HP ---
Admitting History and Physical - Admission Chief Complaint: Left Low back/ Buttock and leg pain. History Source: Patient - Past Medical History Gastrointestinal: Yes: Diverticulosis Endocrine: Yes: Diabetes Mellitus - Smoking History Smoking history: Never smoked Have you smoked in the past 12 months: No Aproximately how many cigarettes per day: 0 - Alcohol/Substance Use Hx Alcohol Use: No Home Medications - Allergies Allergies/Adverse Reactions: Allergies Allergy/AdvReac Type Severity Reaction Status Date / Time baclofen AdvReac Intermediate dizzy Verified 02/06/20 09:32 duloxetine HCl AdvReac Intermediate Nausea Verified 02/06/20 09:32 [From Cymbalta] gabapentin AdvReac Intermediate Nausea Verified 02/06/20 09:32 cyclobenzaprine AdvReac Mild dizzy Verified 02/06/20 09:32 - Home Medications Home Medications: Ambulatory Orders Atorvastatin Ca [Lipitor] 10 mg PO HS 12/17/19 Docusate Sodium [Colace] 100 mg PO PRN 12/17/19 Glipizide [Glucotrol Xl] 2.5 mg PO DAILY 12/17/19 Omeprazole 20 mg PO PRN 12/17/19 Sitagliptin Phosphate [Januvia] 50 mg PO DAILY 12/17/19 Telmisartan/Hydrochlorothiazid [Telmisartan-Hctz 80-25 mg Tab] 1 each PO DAILY 12/17/19 Oxycodone HCl/Acetaminophen [Percocet 10-325 mg Tablet] 1 each PO PRN PRN MDD 3 02/05/20 Polyethylene Glycol 3350 [Miralax (For Bowel Prep) -] 17 gm PO PRN 02/05/20 Review of Systems - Review of Systems Constitutional: reports: No Symptoms Eyes: reports: No Symptoms HENT: reports: No Symptoms Neck: reports: No Symptoms Cardiovascular: reports: No Symptoms Respiratory: reports: No Symptoms Gastrointestinal: reports: No Symptoms Genitourinary: reports: No Symptoms Breasts: reports: No Symptoms Reported Musculoskeletal: reports: Other (Left SIJ Pain) Neurological: reports: No Symptoms Endocrine: reports: No Symptoms Hematology/Lymphatic: reports: No Symptoms Psychiatric: reports: No Symptoms Physical Examination Vital Signs: Vital Signs Temperature 98.4 F 02/06/20 09:45 Pulse Rate 78 02/06/20 09:45 Respiratory Rate 18 02/06/20 09:45 Blood Pressure 146/88 02/06/20 09:45 O2 Sat by Pulse Oximetry (%) 96 02/06/20 09:46 Constitutional: Yes: Well Nourished, No Distress, Calm Eyes: Yes: WNL, Conjunctiva Clear, EOM Intact HENT: Yes: WNL, Atraumatic, Normocephalic Neck: Yes: Trachea Midline Cardiovascular: Yes: Regular Rate and Rhythm Respiratory: Yes: Regular Gastrointestinal: Yes: WNL Musculoskeletal: Yes: Back Pain Extremities: Yes: WNL Neurological: Yes: WNL, Alert, Oriented ...Motor Strength: WNL Psychiatric: Yes: WNL, Alert, Oriented Imaging - Results X-ray: Image Reviewed MRI: Image Reviewed Assessment/Plan The patients pain is secondary to Left Sacroilliac Joint dysfunction. 1. I will perform Left SIJ injection.
[2020-02-06] MEDS ORDERED: TRIAMCINOLONE ACET 40MG/1ML VIAL ONE (11:57)
[2020-02-06] MEDS ORDERED: LIDOCAINE HCL/PF 1% SDV 5ML VIAL ONE (11:57)
[2020-02-06] MEDS ORDERED: LIDOCAINE 1% P/F 10 MG/ML VIAL INF ONE ×2 (12:23)
[2020-02-06] MEDS ORDERED: BUPIVACAINE HCL/PF 0.5% (5 MG/ML) 30 ML VIAL IJ ONE (12:24)
[2020-02-06] MEDS ORDERED: DEXAMETHASONE SOD PHOSPHATE 10 MG/1 ML VIAL IVPUSH ONE (12:32)
[2020-02-06] MEDS ORDERED: TRIAMCINOLONE ACETONIDE 40 MG/ML 10 ML VIAL IJ ONE (12:34)
[2020-02-06 13:37] VITALS: BP 111/66; PULSE 85; TEMP 97.5
--- NOTE | 2020-02-12 09:32 | PROC ---
Procedure Note Procedure: Preprocedure Diagnosis: Left Sacroiliac Joint Dysfunction Post Procedure Diagnosis: same Anesthesia: Local Procedure Performed: Left Sacroiliac Joint injection under fluoroscpic guidance After the risks and benefits were explained, informed consent was obtained. The patient was then taken to the procedure room and positioned prone on the procedure table. Time out was performed. The region overlying the right sacroiliac joint was identified using fluoroscopy. The skin was prepped and draped in the usual sterile fashion. The skin and soft tissues were anesthetized using 2% lidocaine. Using fluoroscopic guidance, a 22 gauge 3.5 inch spinal needle was then introduced to the inferior aspect of the posterior Left sacroiliac joint. Omnipaque 180 confirmed appropriate needle placement. 1 cc .5% bupivacaine and 1 cc Kenalog was then injected. The patient tolerated the procedure well and there were no complications. The patient was taken to the post procedure recovery area in good condition. Vital signs remained stable before, during, and after the procedure. The patient was given oral and written follow-up instructions. The patient was given a follow up appointment with me in the near future. Solomon Zavala DO
== END 2020-02-06 13:45 | disposition home or self-care (01) ==
LOC: JASU-SURG 04:52
PROVIDERS: ATTEND Pain Medicine Pain Medicine
PROC: 3E0T3BZ Introduction of Anesthetic Agent into Peripheral Nerves and Plexi, Percutaneous Approach (ICD-10-PCS; 2020-02-06)
PROC: 3E0T33Z Introduction of Anti-inflammatory into Peripheral Nerves and Plexi, Percutaneous Approach (ICD-10-PCS; principal; 2020-02-06 11:00)
DX: M53.3 Sacrococcygeal disorders, not elsewhere classified (principal); E11.9 Type 2 diabetes mellitus without complications
CPT/HCPCS: 76000-TC-FY; J1100

== ENCOUNTER 2020-09-17 04:10 | Day surgery (SDC) | payer OTHER ==
[2020-09-16 11:11] VITALS: BMI 32.7
[2020-09-17 08:14] VITALS: TEMP 97.7
[2020-09-17] MEDS ORDERED: BUPIVACAINE HCL/PF 0.5% (5MG/ML) 10 ML VIAL IJ ONE (10:48)
[2020-09-17] MEDS ORDERED: IOHEXOL 180 MG/1 ML ML IJ ONE (10:49)
[2020-09-17 12:41] VITALS: BP 148/73; PULSE 73
== END 2020-09-17 11:55 | disposition home or self-care (01) ==
LOC: JASU-SURG 04:10
PROVIDERS: ATTEND Pain Medicine Pain Medicine
PROC: BR14YZZ Fluoroscopy of Cervical Facet Joint(s) using Other Contrast (ICD-10-PCS; 2020-09-17)
PROC: 3E0T3BZ Introduction of Anesthetic Agent into Peripheral Nerves and Plexi, Percutaneous Approach (ICD-10-PCS; principal; 2020-09-17 10:00)
DX: M47.812 Spondylosis without myelopathy or radiculopathy, cervical region (principal)

== ENCOUNTER 2021-01-28 04:16 | Day surgery (SDC) | payer OTHER ==
[2021-01-27 08:39] VITALS: BMI 30.2
[2021-01-28] MEDS ORDERED: TRIAMCINOLONE ACET 40MG/1ML VIAL ONE (07:14)
[2021-01-28] MEDS ORDERED: LIDOCAINE HCL/PF 1% SDV 5ML VIAL ONE (07:14)
[2021-01-28] MEDS ORDERED: BUPIVACAINE HCL/PF 0.5% (5MG/ML) 10 ML VIAL ONE (07:15)
[2021-01-28 11:43] VITALS: BP 126/68; PULSE 70; TEMP 97.4
== END 2021-01-28 11:05 | disposition home or self-care (01) ==
LOC: JASU-SURG 04:16
PROVIDERS: ATTEND Pain Medicine Pain Medicine
PROC: 3E0U3BZ Introduction of Anesthetic Agent into Joints, Percutaneous Approach (ICD-10-PCS; 2021-01-28)
PROC: 3E0U33Z Introduction of Anti-inflammatory into Joints, Percutaneous Approach (ICD-10-PCS; principal; 2021-01-28 10:26)
DX: M53.3 Sacrococcygeal disorders, not elsewhere classified (principal)
CPT/HCPCS: 76000-TC-FY

== ENCOUNTER 2021-09-27 05:24 | Day surgery (SDC) | payer OTHER ==
[2021-09-23 11:04] VITALS: BMI 32.7
[2021-09-27] MEDS ORDERED: LIDOCAINE HCL/PF 1% SDV 5ML VIAL ONE (07:08)
[2021-09-27] MEDS ORDERED: BUPIVACAINE HCL/PF 0.75% 10 ML VIAL ONE (07:09)
[2021-09-27] MEDS ORDERED: TRIAMCINOLONE ACET 40MG/1ML VIAL ONE (07:09)
[2021-09-27] MEDS ORDERED: BUPIVACAINE HCL/PF 0.5% (5MG/ML) 10 ML VIAL ONE (07:09)
[2021-09-27] MEDS ORDERED: DEXAMETHASONE SOD PHOSPHATE 10 MG/1 ML VIAL ONE (07:09)
[2021-09-27] MEDS ORDERED: LIDOCAINE HCL 1% PRESERVATIVE FREE - 30ML VIAL IJ ONE (08:59)
[2021-09-27] MEDS ORDERED: IOHEXOL 180 MG/1 ML ML IJ ONE (09:02)
[2021-09-27] MEDS ORDERED: BUPIVACAINE HCL/PF 0.5% (5 MG/ML) 30 ML VIAL IJ ONE (09:02)
[2021-09-27] MEDS ORDERED: TRIAMCINOLONE ACET 40MG/1ML VIAL IM ONE (09:03)
[2021-09-27 09:57] VITALS: BP 154/71; PULSE 71; TEMP 97.7
== END 2021-09-27 09:35 | disposition home or self-care (01) ==
LOC: JASU-SURG 05:24
PROVIDERS: ATTEND Pain Medicine Pain Medicine
PROC: 3E0U3BZ Introduction of Anesthetic Agent into Joints, Percutaneous Approach (ICD-10-PCS; 2021-09-27)
PROC: 3E0U33Z Introduction of Anti-inflammatory into Joints, Percutaneous Approach (ICD-10-PCS; principal; 2021-09-27 09:30)
DX: M53.3 Sacrococcygeal disorders, not elsewhere classified (principal)
CPT/HCPCS: 76000-TC-FY; J1100

== ENCOUNTER 2021-12-27 04:27 | Day surgery (SDC) | payer OTHER ==
[2021-12-23 09:13] VITALS: BMI 32.7
[2021-12-27] MEDS ORDERED: BUPIVACAINE HCL/PF 0.75% 10 ML VIAL ONE (07:25)
[2021-12-27] MEDS ORDERED: LIDOCAINE HCL/PF 1% SDV 5ML VIAL ONE (07:25)
[2021-12-27] MEDS ORDERED: LIDOCAINE HCL 1% PRESERVATIVE FREE - 30ML VIAL IJ ONE (10:51)
[2021-12-27] MEDS ORDERED: BUPIVACAINE HCL/PF 0.75% 10 ML VIAL NR ONE (10:52)
[2021-12-27 11:48] VITALS: BP 157/85; PULSE 68; TEMP 97.3
== END 2021-12-27 12:08 | disposition home or self-care (01) ==
LOC: JASU-SURG 04:27
PROVIDERS: ATTEND Pain Medicine Pain Medicine
PROC: 3E0T33Z Introduction of Anti-inflammatory into Peripheral Nerves and Plexi, Percutaneous Approach (ICD-10-PCS; 2021-12-27)
PROC: 3E0T3BZ Introduction of Anesthetic Agent into Peripheral Nerves and Plexi, Percutaneous Approach (ICD-10-PCS; principal; 2021-12-27 09:15)
DX: M47.816 Spondylosis without myelopathy or radiculopathy, lumbar region (principal)
CPT/HCPCS: 76000-TC-FY

== ENCOUNTER 2022-08-25 13:46 | Observation (INO) | payer OTHER ==
[2022-08-25] MEDS ORDERED: ACETAMINOPHEN 325 MG TABLET (FP) PO ONE (15:22)
[2022-08-25] MEDS ORDERED: ACETAMINOPHEN 325 MG TABLET (FP) ONE (15:29)
[2022-08-25] MEDS ORDERED: ACETAMINOPHEN 325 MG TABLET (FP) PO PRN (20:54)
[2022-08-25 21:49] LABS: BASO % 0.5 % (0-2.0); EOS % 1.7 % (0-4.5); HEMATOCRIT 32.8 % (32.4-45.2); HEMOGLOBIN 11.3 GM/dL (10.7-15.3); LYMPH % 28.4 % (8-40); MCH 29.6 pg (25.7-33.7); MCHC 34.4 g/dl (32.0-36.0); MEAN CELL VOLUME 85.9 fl (80-96); MEAN PLT VOLUME 7.1 fl (7.5-11.1); MONO % 7.8 % (3.8-10.2); NEUT % 61.6 % (42.8-82.8); PLATELET COUNT 317 10^3/uL (134-434); RBC 3.81 M/mm3 (3.60-5.2); RDW 13.3 % (11.6-15.6); WHITE BLOOD COUNT 7.5 K/mm3 (4.0-10.0)
[2022-08-25 22:09] LABS: ALBUMIN 3.3 g/dl (3.4-5.0); BLOOD UREA NITROGEN 16.3 mg/dL (7-18); MAGNESIUM 2.1 mg/dL (1.8-2.4)
[2022-08-25 22:12] LABS: PHOSPHOROUS 2.8 mg/dL (2.5-4.9)
[2022-08-25 22:13] LABS: BILIRUBIN,TOTAL 0.2 mg/dL (0.2-1); TOT PROT 7.3 g/dl (6.4-8.2)
[2022-08-25] MEDS ORDERED: traMADol HCL 50 MG TABLET PO PRN (22:19)
[2022-08-26 00:51] VITALS: BMI 30.8
[2022-08-26] MEDS: INSULIN SLIDING SCALE (NOVOLOG) 1 VIAL SQ SCH ×4 (00:53→17:34)
[2022-08-26] MEDS: HEPARIN NA (PORCINE) 5,000 UNITS/ML 1ML VIAL SQ SCH ×3 (00:53→13:38)
[2022-08-26] MEDS: oxyCODONE HCL 5 MG TABLET PO PRN ×3 (02:07→23:00)
[2022-08-26] MEDS: ACETAMINOPHEN 325 MG TABLET (FP) PO PRN (06:41)
[2022-08-26 08:37] LABS: BASO % 0.6 % (0-2.0); EOS % 2.8 % (0-4.5); HEMATOCRIT 31.9 % (32.4-45.2); HEMOGLOBIN 10.6 GM/dL (10.7-15.3); LYMPH % 32.6 % (8-40); MCH 28.6 pg (25.7-33.7); MCHC 33.3 g/dl (32.0-36.0); MEAN CELL VOLUME 85.8 fl (80-96); MEAN PLT VOLUME 7.4 fl (7.5-11.1); MONO % 8.8 % (3.8-10.2); NEUT % 55.2 % (42.8-82.8); PLATELET COUNT 302 10^3/uL (134-434); RBC 3.72 M/mm3 (3.60-5.2); RDW 13.3 % (11.6-15.6); WHITE BLOOD COUNT 7.3 K/mm3 (4.0-10.0)
[2022-08-26 09:08] LABS: BLOOD UREA NITROGEN 14.5 mg/dL (7-18); CALCIUM 8.8 mg/dL (8.5-10.1); MAGNESIUM 2.2 mg/dL (1.8-2.4)
[2022-08-26 09:11] LABS: CREATININE 0.7 mg/dL (0.55-1.3); PHOSPHOROUS 3.5 mg/dL (2.5-4.9)
[2022-08-26 09:12] LABS: BILIRUBIN,TOTAL 0.5 mg/dL (0.2-1); TOT PROT 6.6 g/dl (6.4-8.2)
[2022-08-26] MEDS: LOSARTAN POTASSIUM 50 MG TABLET PO SCH (09:23)
[2022-08-26] MEDS: sitaGLIPtin PHOSPHATE 50 MG TABLET PO SCH (09:23)
[2022-08-26] MEDS: ENOXAPARIN NA (PORCINE) 40 MG/0.4 ML DISP.SYRIN SQ SCH (19:07)
[2022-08-26] MEDS ORDERED: ATORVASTATIN CA 10 MG TABLET (FP) PO SCH (22:00)
[2022-08-26] MEDS ORDERED: ZOLPIDEM TARTRATE 5 MG TABLET PO ONE (22:00)
[2022-08-27] MEDS: ACETAMINOPHEN 325 MG TABLET (FP) PO PRN (04:37)
[2022-08-27] MEDS: INSULIN SLIDING SCALE (NOVOLOG) 1 VIAL SQ SCH ×2 (06:30→11:41)
[2022-08-27] MEDS: LOSARTAN POTASSIUM 50 MG TABLET PO SCH (09:34)
[2022-08-27] MEDS: oxyCODONE HCL 5 MG TABLET PO PRN (09:35)
[2022-08-27] MEDS: sitaGLIPtin PHOSPHATE 50 MG TABLET PO SCH (09:35)
[2022-08-27] MEDS: ENOXAPARIN NA (PORCINE) 40 MG/0.4 ML DISP.SYRIN SQ SCH ×2 (09:36→09:41)
[2022-08-27 09:44] LABS: HEMATOCRIT 33.4 % (32.4-45.2); HEMOGLOBIN 10.9 GM/dL (10.7-15.3); MCH 28.2 pg (25.7-33.7); MCHC 32.7 g/dl (32.0-36.0); MEAN CELL VOLUME 86.4 fl (80-96); MEAN PLT VOLUME 7.7 fl (7.5-11.1); PLATELET COUNT 291 10^3/uL (134-434); RBC 3.87 M/mm3 (3.60-5.2); RDW 13.2 % (11.6-15.6); WHITE BLOOD COUNT 8.8 K/mm3 (4.0-10.0)
[2022-08-27 10:17] LABS: CALCIUM 8.8 mg/dL (8.5-10.1)
[2022-08-27 10:18] LABS: BLOOD UREA NITROGEN 15.6 mg/dL (7-18); MAGNESIUM 2.3 mg/dL (1.8-2.4)
[2022-08-27 10:21] LABS: CREATININE 0.8 mg/dL (0.55-1.3)
[2022-08-27 13:55] VITALS: BP 112/61; PULSE 81; RESP 18; TEMP 98.1
== END 2022-08-27 15:37 | disposition home or self-care (01) ==
LOC: JER 13:46 → JERBED 21:06 → J5S 23:25
PROVIDERS: ADMIT Internal Medicine; ATTEND Internal Medicine
PROC: 3E023GC Introduction of Other Therapeutic Substance into Muscle, Percutaneous Approach (ICD-10-PCS; principal; 2022-08-25)
DX: M62.81 Muscle weakness (generalized) (principal); Z88.8 Allergy status to other drugs, medicaments and biological substances; E11.9 Type 2 diabetes mellitus without complications; I10 Essential (primary) hypertension; R20.2 Paresthesia of skin
CPT/HCPCS: 0241U-QW; 36415; 70450-TC; 71046-TC-FY; 72040-TC; 72125-TC; 72141-TC; 73110-TC-RT-FY; 73130-TC-RT-FY; 80048; 80053; 82550; 82962; 83735; 84100; 85025; 85027; 85651; 86140; 93005; 93010; 93971; 96372; 97116-GP; 97162-GP; 99285-25; G0378; J1644

== ENCOUNTER 2023-04-12 10:13 | Emergency (ER) | payer OTHER ==
[2023-04-12 10:21] VITALS: BMI 29.2
[2023-04-12] MEDS ORDERED: LIDOCAINE 4% PATCH TP ONE ×2 (12:19→12:33)
[2023-04-12] MEDS ORDERED: ACETAMINOPHEN 500 MG TABLET (FP) PO ONE (12:20)
[2023-04-12] MEDS ORDERED: ACETAMINOPHEN 325 MG TABLET (FP) ONE (12:33)
[2023-04-12 13:37] LABS: BASO % 0.6 % (0-2.0); EOS % 1.2 % (0-4.5); HEMATOCRIT 35.9 % (32.4-45.2); LYMPH % 21.3 % (8-40); MCHC 33.4 g/dl (32.0-36.0); MEAN CELL VOLUME 86.8 fl (80-96); MEAN PLT VOLUME 7.8 fl (7.5-11.1); MONO % 5.6 % (3.8-10.2); NEUT % 71.3 % (42.8-82.8); PLATELET COUNT 253 10^3/uL (134-434); RBC 4.13 M/mm3 (3.60-5.2); WHITE BLOOD COUNT 8.5 K/mm3 (4.0-10.0)
[2023-04-12 13:44] LABS: EPI CELLS 16 /uL (0-25.1); HYALINE CASTS 0 /uL (0-3.1); URINE APPEARANCE CLEAR; URINE BACTERIA 257 /uL (0-1359); URINE BILIRUBIN NEGATIVE (NEGATIVE); URINE COLOR YELLOW; URINE GLUCOSE (UA) NEGATIVE (NEGATIVE); URINE KETONE NEGATIVE (NEGATIVE); URINE LEUK ESTERASE 1+ (NEGATIVE); URINE NITRITE NEGATIVE (NEGATIVE); URINE PROTEIN NEGATIVE (NEGATIVE); URINE RBC 55 /uL (0-23.9); URINE UROBILINOGEN 0.2 mg/dL (0.2-1.0); URINE WBC 8 /uL (0-25.8)
[2023-04-12 13:51] LABS: INR 1.05 (0.83-1.09); PROTHROMBIN TIME (PATIENT) 12.2 SEC (9.7-13.0)
[2023-04-12 14:07] LABS: POTASSIUM 3.9 mmol/L (3.5-5.1)
[2023-04-12 14:10] LABS: ALBUMIN 3.6 g/dl (3.4-5.0); BLOOD UREA NITROGEN 18.5 mg/dL (7-18); CALCIUM 8.9 mg/dL (8.5-10.1)
[2023-04-12 14:13] LABS: CREATININE 0.9 mg/dL (0.55-1.3)
[2023-04-12 14:15] LABS: BILIRUBIN,TOTAL 0.6 mg/dL (0.2-1); TOT PROT 7.4 g/dl (6.4-8.2)
[2023-04-12] MEDS ORDERED: KETOROLAC TROMETHAMINE 15 MG/ML VIAL IVPUSH ONE (14:29)
[2023-04-12] MEDS ORDERED: KETOROLAC TROMETHAMINE 15 MG/ML VIAL ONE (17:22)
[2023-04-12 18:22] VITALS: BP 169/86; PULSE 66; RESP 17; TEMP 98.1
[2023-04-12] MEDS ORDERED: LIDOCAINE PATCH REMOVAL MC ONE (22:00)
== END 2023-04-12 18:51 | disposition home or self-care (01) ==
LOC: JER 10:13
PROC: 3E0333Z Introduction of Anti-inflammatory into Peripheral Vein, Percutaneous Approach (ICD-10-PCS; principal; 2023-04-12)
DX: M54.31 Sciatica, right side (principal); N39.0 Urinary tract infection, site not specified; R10.31 Right lower quadrant pain
CPT/HCPCS: 36415; 74176-TC; 80053; 81003; 85025; 85610; 87086; 99284-25

== ENCOUNTER 2023-05-25 03:53 | Day surgery (SDC) | payer OTHER ==
[2023-05-23 16:42] VITALS: BMI 29.2
[~2023-05-25 03:53] MED LIST: ACETAMINOPHEN 500 MG TABLET (FP) PO PRN
[2023-05-25] MEDS ORDERED: LIDOCAINE HCL/PF 1% SDV 5ML VIAL ONE (07:18)
[2023-05-25] MEDS ORDERED: DEXAMETHASONE SOD PHOSPHATE 10 MG/1 ML VIAL ONE (07:18)
[2023-05-25 07:50] VITALS: RESP 20
[2023-05-25] MEDS ORDERED: IOHEXOL 180 MG/1 ML ML IJ ONE (10:47)
[2023-05-25] MEDS ORDERED: DEXAMETHASONE SOD PHOSPHATE 10 MG/1 ML VIAL IVPUSH ONE (10:47)
[2023-05-25] MEDS ORDERED: LIDOCAINE 1% P/F 10 MG/ML VIAL INF ONE (10:47)
[2023-05-25 11:43] VITALS: BP 146/73; PULSE 82; TEMP 98.6
[2023-05-25] MEDS ORDERED: ACETAMINOPHEN 500 MG TABLET (FP) PO PRN (13:58)
== END 2023-05-25 12:26 | disposition home or self-care (01) ==
LOC: JASU-SURG 03:53
PROVIDERS: ATTEND Pain Medicine Pain Medicine
PROC: 3E0R3BZ Introduction of Anesthetic Agent into Spinal Canal, Percutaneous Approach (ICD-10-PCS; 2023-05-25)
PROC: 3E0R33Z Introduction of Anti-inflammatory into Spinal Canal, Percutaneous Approach (ICD-10-PCS; principal; 2023-05-25 10:15)
DX: M54.16 Radiculopathy, lumbar region (principal)
CPT/HCPCS: 76000-TC-FY; J1100

== ENCOUNTER 2024-09-19 05:26 | Day surgery (SDC) | payer OTHER ==
[2024-09-17 12:52] VITALS: BMI 29.2
[2024-09-19 12:34] VITALS: BP 144/84; PULSE 78; RESP 20; TEMP 98
[2024-09-19] MEDS ORDERED: ACETAMINOPHEN 500 MG TABLET (FP) PO PRN (12:38)
== END 2024-09-19 12:54 | disposition home or self-care (01) ==
LOC: JASU-SURG 05:26
PROVIDERS: ATTEND Pain Medicine Pain Medicine
PROC: 3E0U3BZ Introduction of Anesthetic Agent into Joints, Percutaneous Approach (ICD-10-PCS; 2024-09-19)
PROC: 3E0U33Z Introduction of Anti-inflammatory into Joints, Percutaneous Approach (ICD-10-PCS; principal; 2024-09-19 12:12)
DX: M53.3 Sacrococcygeal disorders, not elsewhere classified (principal)
CPT/HCPCS: 76000-TC-FY